=== PATIENT | male | born 1985 | race Caucasian/White ===

== ENCOUNTER 2016-04-07 12:46 | Emergency (ER) | payer OTHER ==
[~2016-04-07] VITALS: Ht 160 cm; Wt 61.8 kg
[~2016-04-07 12:46] MED LIST: BUSP15TA70 PO; SERT-234 PO; TRAZ100T29 PO
[2016-04-07 13:04] VITALS: TEMP 36.8; Ht 160 cm; Wt 61.8 kg
[2016-04-07 13:38] LABS: HEMATOCRIT 42.1 % (42-52); MEAN CELL VOLUME 92.9 fL (80-100); MEAN CORPUSCULAR HEMOGLOBIN 33.6 pg (25-34); MEAN CORPUSCULAR HGB CONC 36.1 g/dl (32-36); MEAN PLATELET VOLUME 8.9 fL (7.4-10.4); PLATELET COUNT 200 K/uL (130-400); RED BLOOD COUNT 4.53 M/uL (4.7-6.1); WHITE BLOOD COUNT 3.64 K/uL (4.8-10.8)
[2016-04-07 13:50] LABS: BENZODIAZEPINE, URINE NEG (NEG); COCAINE,URINE NEG (NEG); PHENCYCLIDINE, URINE NEG (NEG)
[2016-04-07 14:03] LABS: ALT/SGPT 47 U/L (12-78); AST/SGOT 50 U/L (15-37); BLOOD UREA NITROGEN 8 mg/dl (7-18); BUN/CREATININE RATIO 10.9 (10-20); CALCIUM 8.6 mg/dl (8.5-10.1); CARBON DIOXIDE 25 mmol/L (21-32); CHLORIDE 107 mmol/L (98-107); CREATININE 0.74 mg/dl (0.60-1.40); GLUCOSE 81 mg/dl (70-99); POTASSIUM 3.9 mmol/L (3.5-5.1); SODIUM 143 mmol/L (136-145)
[2016-04-07 14:10] LABS: ACETAMINOPHEN < 2 ug/ml (10-30)
[2016-04-07 14:11] LABS: ALKALINE PHOSPHATASE 83 U/L (45-117); THYROID STIMULATING HORMONE 0.516 uIu/ml (0.300-4.500)
--- NOTE | 2016-04-07 16:42 | EMERGENCY ROOM VISIT NOTE ---
History Report prepared by Emmanuel: Samuel Epperson Under the Supervision of: Dr. Milo Rawls M.D. First contact with patient: 12:50 Stated Complaint: MENTAL HEALTH History of Present Illness The patient is a 30 year old male who presents to the Emergency Room for an acute mental health evaluation. As per the mental health field nurse case manager, his sister stated that the patient reportedly made suicidal statements when he was speaking with his mother, which he is currently denying. He denies suicidal ideations. The patient was being checked on by a case manager specialist from retirement, who called an ambulance because he appeared to be out of it. The patient had taken 2 mg of Xanax that is not prescribed to him. The patient was in retirement for five years and was released on January 17. The patient took the Xanax because he has been feeling depressed and anxious. He has prescriptions for BuSpar, Zoloft , and Trazodone. He states that he has been compliant with his prescriptions. He had some mixed drinks last night. He denies drinking any alcohol today. He does not necessarily drink on a daily basis. The patient currently lives with his parents. He has a job, but has been on leave because of a broken arm. They just removed the cast on his right arm and he is ready to go back to work. The patient has been having trouble sleeping. He states that he has "kind of" been eating. The patient denies any other health problems. He follows up with [facility]. The patient states that his goal was to be placed on a medication that will help with his anxiety and depression. The patient is currently in the process of being seen by a psychiatrist but states that he was told that he needs 5 visits with the psychiatrist before being placed on a different medication. Source of History: patient, family Position: other (psyche) Quality: other (mental health evaluation) Timing: other (acute) Modifying Factors (Relieving): other (Xanax) Note: Patient reports anxiety and depression. Review of Systems See HPI for pertinent positives & negatives. A total of 10 systems reviewed and were otherwise negative. Past Medical & Surgical Medical Problems: (1) Abdominal pain (2) Alcohol withdrawal (3) Alcoholism (4) Alcoholism (5) Anxiety (6) Dehydration (7) Dehydration (8) Gastroenteritis (9) Hypokalemia (10) Insomnia (11) Nausea and vomiting (12) Nausea and vomiting (13) Pancreatitis (14) Pancreatitis (15) Vomiting Family History Hypertension Social History Smoking Status: Never Smoker Alcohol Use: heavy Marital Status: Housing Status: lives with family Occupation Status: unemployed Current/Historical Medications Scheduled Buspirone Hcl (Buspar), 20 MG PO HS Sertraline (Zoloft), 100 MG PO DAILY Trazodone Hcl (Trazodone), 100 MG PO HS Allergies Coded Allergies: No Known Allergies (Unverified , 04/07/16) Physical Exam Vital Signs Date Time Temp Pulse Resp B/P Pulse Ox O2 Delivery O2 Flow Rate FiO2 04/07/16 13:04 36.8 95 18 133/94 95 Room Air Physical Exam Constitutional: Vital signs reviewed. Eyes: Pupils are equal round reactive to light. Conjunctiva are noninjected. ENT: Pharynx is clear without erythema or exudate. Mucous membranes are moist. Neck supple without meningeal signs. Respiratory: Clear to auscultation bilaterally. Breath sounds are equal bilaterally. Cardiovascular: Regular rate and rhythm. No rubs or gallops. GI: Soft, nondistended and nontender. Bowel sounds are present. Musculoskeletal: No peripheral edema. Integumentary: No cyanosis. Neurological: The patient is awake and alert. No focal deficits. Psychiatric: He is not tearful or suicidal. Medical Decision & Procedures Laboratory Results 04/07/16 13:15 04/07/16 13:15 Test 04/07/16 13:15 04/07/16 13:20 Red Blood Count 4.53 M/uL (4.7-6.1) Mean Corpuscular Volume 92.9 fL (80-100) Mean Corpuscular Hemoglobin 33.6 pg (25-34) Mean Corpuscular Hemoglobin Concent 36.1 g/dl (32-36) RDW Standard Deviation 45.4 fL (36.4-46.3) RDW Coefficient of Variation 13.5 % (11.5-14.5) Mean Platelet Volume 8.9 fL (7.4-10.4) Anion Gap 11.0 mmol/L (3-11) Est Creatinine Clear Calc Drug Dose 115.3 ml/min Estimated GFR () 141.5 Estimated GFR (Non- 122.1 BUN/Creatinine Ratio 10.9 (10-20) Calcium Level 8.6 mg/dl (8.5-10.1) Total Bilirubin 0.3 mg/dl (0.2-1) Direct Bilirubin < 0.1 mg/dl (0-0.2) Aspartate Amino Transf (AST/SGOT) 50 U/L (15-37) Alanine Aminotransferase (ALT/SGPT) 47 U/L (12-78) Alkaline Phosphatase 83 U/L (45-117) Total Protein 7.9 gm/dl (6.4-8.2) Albumin 4.6 gm/dl (3.4-5.0) Thyroid Stimulating Hormone (TSH) 0.516 uIu/ml (0.300-4.500) Salicylates Level < 1.7 mg/dl (2.8-20) Acetaminophen Level < 2 ug/ml (10-30) Ethyl Alcohol mg/dL 323.0 mg/dl (0-3) Urine Opiates Screen NEG (NEG) Urine Methadone, Qualitative NEG (NEG) Urine Barbiturates NEG (NEG) Urine Phencyclidine (PCP) Level NEG (NEG) Ur Amphetamine/Methamphetamine NEG (NEG) MDMA (Ecstasy) Screen NEG (NEG) Urine Benzodiazepines Screen NEG (NEG) Urine Cocaine Metabolite NEG (NEG) Urine Marijuana (THC) NEG (NEG) Laboratory results as reviewed by me. ED Course 1253: The patient was evaluated in room A7. A complete history and physical exam was performed. 1517: The mental health flanger had a discussion with the patient's mother with his permission. The mother stated that he made no direct statements about suicidality. He has spoken about the suicides of other people but never spoke about suicide in relationship to himself. The reason he was sent over here was because he has been drinking significantly and he was difficult to arouse this morning. The flanger that assessed and was from [place] and not from the retirement. Currently the patient's alcohol level is above 300. He will require mental health assessment once he is sober. Medical Decision This is a 30-year-old male who presents for a mental health evaluation. I did perform a limited focused review of portions of the patient's old chart on the electronic medical record. The patient has been here previously for alcohol withdrawal and alcohol-related injuries. I did evaluate the patient as noted above. I did order and review the patient's blood work as noted in the electronic medical record. His alcohol level is above 300. Initially I was told that the patient was sent here for possible suicidality. The field nurse case manager did speak to the mother directly who stated that the patient did not make any suicidal statements. She stated that the patient talked about the suicides of other people but never spoke about suicide in regards to himself. He was sent here because he was difficult to arouse which was likely due to the combination of Xanax and alcohol ingestion. The patient will be kept in the emergency department until he is sober and be reassessed at that time by mental health. The patient was signed out to Dr. Yan. Impression Primary Impression: Alcohol intoxication Scribe Attestation The scribe's documentation has been prepared under my direct and personally reviewed by me in its entirety. I confirm that the note above accurately reflects all work, treatment, procedures, and medical decision making performed by me. Departure Information Dispostion Still a Patient Referrals No Doctor, Assigned (PCP) Problem Qualifiers Primary Impression: Alcohol intoxication Complication of substance-induced condition: uncomplicated Qualified Codes: F10.120 - Alcohol abuse with intoxication, uncomplicated
[2016-04-07] MEDS ORDERED: TRAZODONE HCL 50 MG TAB PO ONE (22:45)
[2016-04-07] MEDS ORDERED: SERTRALINE HCL 100 MG TAB PO SCH (22:45)
[2016-04-07] MEDS ORDERED: BusPIRone 15 MG TAB PO SCH (22:45)
--- NOTE | 2016-04-08 01:22 | EMERGENCY ROOM VISIT NOTE ---
ED Visit Note Patient is a 30-year-old male who presents the ER intoxicated and was evaluated by Dr. López to be medically cleared at 10 PM. At that time patient was supposed to be evaluated by can help. Stephani from case management discussed with the family and obtained a 302 petition as the patient has been drinking persistently and making suicidal statements per their report. Patient is currently being evaluated by can help and following this evaluation will make a decision. Patient was signed out to Dr. Crawford awaiting can help evaluation.
--- NOTE | 2016-04-08 05:52 | EMERGENCY ROOM VISIT NOTE ---
ED Visit Note First contact with patient: 01:22 30 yr old alcoholic male recently [facility] initially evaluated by Dr Rawls, signed out to Dr Yan awaiting mental health evaluation. 302 petition on file due to multiple suicidal statements while intoxicated. On CAN help evaluation patient willing to sign himself in on 201 basis for further inpatient treatment of his depression, suicidal ideation. [facility] accepted him for further inpatient evaluation and he will be transported there this morning.
[2016-04-08 10:19] VITALS: BP 132/83; PULSE 77; O2SAT 99
== END 2016-04-08 10:21 ==
LOC: EDBD 12:46 → C.EDA 12:48
DX: F10.129 Alcohol abuse with intoxication, unspecified (principal); F32.9 Major depressive disorder, single episode, unspecified; R45.851 Suicidal ideations; F41.9 Anxiety disorder, unspecified; K86.1 Other chronic pancreatitis; Z86.19 Personal history of other infectious and parasitic diseases; Z79.899 Other long term (current) drug therapy; Z82.49 Family history of ischemic heart disease and other diseases of the circulatory system

== ENCOUNTER 2016-07-09 09:33 | Emergency (ER) | payer OTHER ==
[~2016-07-09] VITALS: Ht 160 cm; Wt 63.1 kg
[2016-07-09 09:38] VITALS: TEMP 36.9; Ht 160 cm; Wt 63.1 kg
[2016-07-09] MEDS ORDERED: MULTI-VITAMIN INFUSION INJ 10 ML, THIAMINE HCL INJ 100 MG, FoLIC ACID INJ 1 MG in SODIU... IV ONE (10:00)
--- NOTE | 2016-07-09 10:21 | DIAGNOSTIC IMAGING REPORT ---
HEAD CT NONCONTRAST CT DOSE: 823.94 mGycm HISTORY: Head injury. TECHNIQUE: Multiaxial CT images of the head were performed without the use of intravenous contrast. Automated exposure control was utilized for this study. Comparison: Head CT 10/01/2011. Findings: Severe mucosal thickening within the right maxillary sinus and mild mucosal thickening within the left maxillary sinus. No fluid levels within the paranasal sinuses. The mastoid air cells are clear. Minimal left frontal scalp swelling. Stable prominence of the basilar cisterns. The calvarium and skull base are intact. The ventricles and sulci are within normal limits. There is no mass, hematoma, midline shift, or acute infarct. Impression: 1. No acute intracranial abnormality. 2. Chronic maxillary sinusitis. 3. Minimal left frontal scalp swelling. Electronically signed by: Taiwo Lopez M.D. 07/09/2016 10:19 AM Dictated Date/Time: 07/09/2016 10:13 AM
[2016-07-09 10:49] LABS: CALCIUM 9.1 mg/dl (8.5-10.1); CREATININE 0.73 mg/dl (0.60-1.40); POTASSIUM 3.7 mmol/L (3.5-5.1)
[2016-07-09] MEDS ORDERED: QUET1TAB10 PO (11:07)
[2016-07-09] MEDS ORDERED: BUPR1SUB23 SL (11:07)
[2016-07-09] MEDS ORDERED: ZLF/100 PO (11:07)
[2016-07-09] MEDS ORDERED: BSP/10 PO (11:07)
[2016-07-09] MEDS ORDERED: CTP1CL PO (11:07)
--- NOTE | 2016-07-09 11:31 | DIAGNOSTIC IMAGING REPORT ---
CERVICAL SPINE CT CT DOSE: 504.42 mGycm HISTORY: Trauma. Pain. eval for fx TECHNIQUE: Multiaxial CT images of the cervical spine were performed and reformatted in the sagittal and coronal plane without the use of contrast. COMPARISON: None. FINDINGS: No fractures. No subluxation. Prevertebral soft tissues and the C1-C2 interval are intact. No pneumothorax. IMPRESSION: No fractures within the cervical spine. Electronically signed by: Franco Youssef M.D. 07/09/2016 11:29 AM Dictated Date/Time: 07/09/2016 11:23 AM
[2016-07-09 12:31] VITALS: BP 152/103; PULSE 101; O2SAT 96
--- NOTE | 2016-07-09 14:06 | EMERGENCY ROOM VISIT NOTE ---
History Report prepared by Katherinibtanna: Shelli Massey Under the Supervision of: Dr. Milo Rawls M.D. First contact with patient: 09:39 Chief Complaint: FALL Stated Complaint: FALL/HEAD INJURY History of Present Illness The patient is a 30 year old male who presents to the Emergency Room via EMS with complaints of a head injury status post a fall that occurred this morning. 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 He fell forward and struck his head on the ground. The patient is unsure if he lost consciousness. Afterwards, the patient was altered and was not answering questions appropriately. EMS noted that the patient smelled of alcohol. The patient admitted to EMS that he was drinking vodka and rum last night. Currently, the patient complains of a constant headache. He denies any other injuries or pain from the fall other than some abrasions to his arms. He has a history of a skull fracture as a teenager. Denies neck pain, chest pain, abdominal pain, back pain, or other complaints. Source of History: patient, EMS, nursing staff Onset: this morning Position: head Timing: constant Associated Symptoms: No abdominal pain, No back pain, No chest pain, No neck pain Note: Other symptoms: AMS Review of Systems See HPI for pertinent positives & negatives. A total of 10 systems reviewed and were otherwise negative. Past Medical & Surgical Medical Problems: (1) Abdominal pain (2) Alcohol withdrawal (3) Alcoholism (4) Alcoholism (5) Anxiety (6) Dehydration (7) Dehydration (8) Gastroenteritis (9) Hypokalemia (10) Insomnia (11) Nausea and vomiting (12) Nausea and vomiting (13) Pancreatitis (14) Pancreatitis (15) Vomiting Family History Hypertension Social History Smoking Status: Current Every Day Smoker Alcohol Use: heavy Marital Status: Housing Status: lives with family Occupation Status: employed Current/Historical Medications Scheduled Buprenorphine Hcl-Naloxone Hcl (Suboxone 8-2 Mg), 1 TAB SL DAILY Buspirone HCl (Buspirone HCl), 2 TABS PO HS Clonidine Hcl (Catapres), 1 TAB PO BID Quetiapine Fumarate (Seroquel), 1 TAB PO HS Sertraline HCl (Sertraline HCl), 1 TAB PO DAILY Allergies Coded Allergies: No Known Allergies (Unverified , 07/09/16) Physical Exam Vital Signs Date Time Temp Pulse Resp B/P Pulse Ox O2 Delivery O2 Flow Rate FiO2 07/09/16 12:31 101 16 152/103 96 07/09/16 12:01 101 16 152/103 96 07/09/16 10:16 112 20 153/91 93 Room Air 07/09/16 09:38 36.9 114 18 143/104 94 Room Air Physical Exam Constitutional: Vital signs reviewed. Head: Abrasion to the left forehead. No bony depression. Eyes: Pupils are equal round reactive to light. Conjunctiva are noninjected. ENT: Pharynx is clear without erythema or exudate. Mucous membranes are moist. No midline tenderness to the cervical spine. Neck is in a rigid cervical collar. Respiratory: Clear to auscultation bilaterally. Breath sounds are equal bilaterally. Cardiovascular: Regular rate and rhythm. No rubs or gallops. GI: Soft, nondistended and nontender. Bowel sounds are present. Musculoskeletal: No peripheral edema. No bony tenderness or deformity to the extremities. Abrasions to the right upper extremity. Integumentary: No cyanosis. Neurological: The patient is awake and alert. Cranial nerves II-XII are intact. Motor is 5 out of 5 all extremities. Sensation is intact to light touch all extremities. Normal speech. No pronator drift. No limb ataxia. GCS 15. Psychiatric: Normal affect. Medical Decision & Procedures ER Provider Diagnostic Interpretation: Radiology results as stated below per my review and the radiologist's interpretation: HEAD CT NONCONTRAST CT DOSE: 823.94 mGycm HISTORY: Head injury. TECHNIQUE: Multiaxial CT images of the head were performed without the use of intravenous contrast. Automated exposure control was utilized for this study. Comparison: Head CT 10/01/2011. Findings: Severe mucosal thickening within the right maxillary sinus and mild mucosal thickening within the left maxillary sinus. No fluid levels within the paranasal sinuses. The mastoid air cells are clear. Minimal left frontal scalp swelling. Stable prominence of the basilar cisterns. The calvarium and skull base are intact. The ventricles and sulci are within normal limits. There is no mass, hematoma, midline shift, or acute infarct. Impression: 1. No acute intracranial abnormality. 2. Chronic maxillary sinusitis. 3. Minimal left frontal scalp swelling. Electronically signed by: Taiwo Lopez M.D. 07/09/2016 10:19 AM Dictated Date/Time: 07/09/2016 10:[address] DOSE: 504.42 mGycm HISTORY: Trauma. Pain. eval for fx TECHNIQUE: Multiaxial CT images of the cervical spine were performed and reformatted in the sagittal and coronal plane without the use of contrast. COMPARISON: None. FINDINGS: No fractures. No subluxation. Prevertebral soft tissues and the C1-C2 interval are intact. No pneumothorax. IMPRESSION: No fractures within the cervical spine. Electronically signed by: Franco Youssef M.D. 07/09/2016 11:29 AM Dictated Date/Time: 07/09/2016 11:23 AM Laboratory Results 07/09/16 09:55 Test 07/09/16 09:55 Anion Gap 9.0 mmol/L (3-11) Est Creatinine Clear Calc Drug Dose 116.9 ml/min Estimated GFR () 142.2 Estimated GFR (Non- 122.7 BUN/Creatinine Ratio 23.0 (10-20) Calcium Level 9.1 mg/dl (8.5-10.1) Ethyl Alcohol mg/dL 321.0 mg/dl (0-3) Laboratory results as reviewed by me. Medications Administered Medications (Trade) Dose Ordered Sig/Sohpia Route Start Time Stop Time Status Last Admin Dose Admin Multivitamins/ Thiamine HCl/ Folic Acid/Sodium Chloride (Mvi Infusion Inj/Vitamin B-1 Inj/Folvite Inj/ Nss 1000ml) 1,011.2 ml @ 500 mls/ hr Q2H2M ONCE IV 07/09/16 10:00 07/09/16 12:01 DC 07/09/16 10:16 500 MLS/HR ED Course 0940: The patient was evaluated in room A10. A complete history and physical exam was performed. 1000: Ordered Multivitamins 10 ml/Thiamine HCl 100 mg/Folic Acid 1 mg/NSS 1011.2 ml @ 500 mls/hr IV. 1132: I reassessed the patient. He was awake and alert, drinking a Gatorade. I discussed test results with him, including his alcohol level. He said he was drinking heavily last night at a pool tournament. He declines rehab or detox. 1213: I reassessed the patient. He was awake, alert, and messaging on his cell phone. The patient's boss is at bedside and agreed to drive the patient home. The patient understands that he cannot drive or go back to work for the rest of the day. The patient will be discharged home. Medical Decision This is a 30-year-old male who presents with fall and head injury. Differential diagnosis includes contusion, concussion, skull fracture, intracranial hemorrhage, alcohol intoxication. I did perform a limited focused review of portions of the patient's old chart on the electronic medical record. He was here in March for alcohol intoxication. I did evaluate the patient as noted above. The patient presents after a mechanical fall today. He does have the smell of alcohol on his breath but states that he drank last night. Looking in his previous records he has been here for alcohol intoxication as well as alcohol withdrawal. I suspect he is a long-time drinker although he minimizes his drinking to me. He is neurologically intact. IV access was established. The patient was given an IV banana bag. I did order and review the patient's blood work as noted in the electronic medical record. His alcohol level is over 300. I did order a CT of the head and cervical spine. I did review the images myself as well as the radiology report as described above. There is no evidence of acute process on CT scan. His c-collar was removed and he was able to move his neck without pain or difficulty. We did observe him here. The patient remains awake and alert. He does not appear significantly intoxicated likely because he is a long -term heavy drinker. I did discuss his test results with him. He did wish to go home. He declined alcohol rehabilitation or detox. His boss came to pick him up to take him home. He was told not to and drive for the rest of the day and to follow up with his doctor. He was given head injury precautions. Impression Primary Impression: Acute head injury Additional Impressions: Fall Alcohol intoxication Scribe Attestation The scribe's documentation has been prepared under my direct and personally reviewed by me in its entirety. I confirm that the note above accurately reflects all work, treatment, procedures, and medical decision making performed by me. Departure Information Dispostion Home / Self-Care Referrals No Doctor, Assigned (PCP) Patient Instructions ED Alcohol Intoxication, ED Head Injury Closed, My [facility] Additional Instructions You have been examined and treated today on an emergency basis only. This is not a substitute for, or an effort to provide, complete comprehensive medical care. It is impossible to recognize and treat all injuries or illnesses in a single emergency department visit. It is therefore important that you follow up closely with your physician. Call as soon as possible for an appointment. Return for worsening symptoms or if you develop fever, numbness or weakness on one side of your body, difficulties with your speech or walking, or any other concerning symptoms. Do not drive or operate any machinery today. Problem Qualifiers Primary Impression: Acute head injury Encounter type: initial encounter Qualified Codes: S09.90XA - Unspecified injury of head, initial encounter Additional Impressions: Fall Encounter type: initial encounter Qualified Codes: W19.XXXA - Unspecified fall, initial encounter Alcohol intoxication Complication of substance-induced condition: uncomplicated Qualified Codes: F10.120 - Alcohol abuse with intoxication, uncomplicated
== END 2016-07-09 12:22 | disposition home or self-care (01) ==
LOC: EDBD 09:33 → C.EDA 09:34
DX: S09.90XA Unspecified injury of head, initial encounter (principal); W19.XXXA Unspecified fall, initial encounter; Y99.0 Civilian activity done for income or pay; F10.120 Alcohol abuse with intoxication, uncomplicated; Y90.8 Blood alcohol level of 240 mg/100 ml or more; S00.81XA Abrasion of other part of head, initial encounter; S40.811A Abrasion of right upper arm, initial encounter; F41.9 Anxiety disorder, unspecified; F17.200 Nicotine dependence, unspecified, uncomplicated; Z82.49 Family history of ischemic heart disease and other diseases of the circulatory system

== ENCOUNTER 2016-07-09 15:45 | Emergency (ER) | payer OTHER ==
[~2016-07-09] VITALS: Ht 175.3 cm; Wt 63.6 kg
[~2016-07-09 15:45] MED LIST changes: +BSP/10 PO; +BUPR1SUB23 SL; +CTP1CL PO; +QUET1TAB10 PO; +ZLF/100 PO
--- NOTE | 2016-07-09 15:53 | EMERGENCY ROOM VISIT NOTE ---
History Report prepared by Emmanuel: Bandar Lockett Under the Supervision of: Dr. rGeg Ward M.D. First contact with patient: 15:42 Stated Complaint: LF EAR LAC/ SOME ALCOHOL History of Present Illness The patient is a 30 year old male who presents to the Emergency Room via EMS with complaints of a sudden left ear laceration that occurred prior to arrival today. The patient was seen here earlier today after being drunk at work and hitting his head. He was sent home with his boss. Per EMS, the patient was intoxicated again and went into a wine spirits store. The patient would not be sold any more alcohol, so he then became combative. Police told EMS that the patient was on the floor and smashing wine bottles everywhere. It is presumed that the patient cut his ear on a broken wine bottle. Per EMS, the patient has been combative and actually pulled the band off of his left ear, so EMS had to put another band on. The patient is an occasional drinker, but when he starts he does not quit, per EMS. Per the patient, he currently has a headache. His tetanus shot is up to date. He denies pain anywhere. Denies abdominal pain back pain or vomiting. Source of History: patient, police, EMS Onset: Prior to arrival today Position: ear (left) Quality: other (laceration) Timing: other (sudden) Associated Symptoms: + headache Note: Associated symptoms: Intoxicated, combative. Review of Systems See HPI for pertinent positives & negatives. A total of 10 systems reviewed and were otherwise negative. Past Medical & Surgical Medical Problems: (1) Abdominal pain (2) Alcohol withdrawal (3) Alcoholism (4) Alcoholism (5) Anxiety (6) Dehydration (7) Dehydration (8) Gastroenteritis (9) Hypokalemia (10) Insomnia (11) Nausea and vomiting (12) Nausea and vomiting (13) Pancreatitis (14) Pancreatitis (15) Vomiting Old medical records were reviewed. Nurse's notes were reviewed and I agree with. Family History Hypertension Social History Alcohol Use: occasionally Marital Status: single Occupation Status: employed Current/Historical Medications Scheduled Buprenorphine Hcl-Naloxone Hcl (Suboxone 8-2 Mg), 1 TAB SL DAILY Buspirone HCl (Buspirone HCl), 2 TABS PO HS Clonidine Hcl (Catapres), 1 TAB PO BID Quetiapine Fumarate (Seroquel), 1 TAB PO HS Sertraline HCl (Sertraline HCl), 1 TAB PO DAILY Allergies Coded Allergies: No Known Allergies (Unverified , 07/09/16) Physical Exam Vital Signs Date Time Temp Pulse Resp B/P Pulse Ox O2 Delivery O2 Flow Rate FiO2 07/09/16 19:12 100 18 145/100 100 07/09/16 18:00 110 20 139/93 96 Room Air 07/09/16 16:09 36.9 115 18 151/91 97 Room Air 07/09/16 16:07 98 07/09/16 16:03 95 Room Air Physical Exam General: Well developed well nourished intoxicated young male. Answers some questions but not other. Smells of alcohol. HEENT: Left ear laceration on lateral pinna. Minimal bleeding. It is on the front and also back. Pupils are equal round and reactive to light. Extraocular movements are intact. Oropharynx is pink with moist mucous membranes. Neck: Supple with a midline trachea. No meningeal signs or stiffness, no JVD or bruits. No Stridor. Chest: Clear to auscultation bilaterally. No wheezes or rhonchi. No increased work of breathing. Heart: regular rate and rhythm. Abdomen: Soft nontender, nondistended without rebound guarding or rigidity. Extremities: No cyanosis clubbing or edema. No calf tenderness or assymetry Spine/Back. Non tender to palpation. No CVA tenderness Skin: Good turgor without rashes. Neurologic exam: Cranial nerves two through 12 are intact. Motor and sensation are intact and symmetrical throughout. Medical Decision & Procedures Laboratory Results 07/09/16 16:49 Red Blood Count 4.05, Mean Corpuscular Volume 92.1, Mean Corpuscular Hemoglobin 32.8, Mean Corpuscular Hemoglobin Concent 35.7, Mean Platelet Volume 8.3, Neutrophils (%) (Auto) 63.3, Lymphocytes (%) (Auto) 27.0, Monocytes (%) (Auto) 8.1, Eosinophils (%) (Auto) 0.4, Basophils (%) (Auto) 0.8, Neutrophils # (Auto) 3.35, Lymphocytes # (Auto) 1.43, Monocytes # (Auto) 0.43, Eosinophils # (Auto) 0.02, Basophils # (Auto) 0.04 07/09/16 16:49 Test 07/09/16 16:49 White Blood Count 5.29 K/uL (4.8-10.8) Red Blood Count 4.05 M/uL (4.7-6.1) Hemoglobin 13.3 g/dL (14.0-18.0) Hematocrit 37.3 % (42-52) Mean Corpuscular Volume 92.1 fL (80-100) Mean Corpuscular Hemoglobin 32.8 pg (25-34) Mean Corpuscular Hemoglobin Concent 35.7 g/dl (32-36) Platelet Count 213 K/uL (130-400) Mean Platelet Volume 8.3 fL (7.4-10.4) Neutrophils (%) (Auto) 63.3 % Lymphocytes (%) (Auto) 27.0 % Monocytes (%) (Auto) 8.1 % Eosinophils (%) (Auto) 0.4 % Basophils (%) (Auto) 0.8 % Neutrophils # (Auto) 3.35 K/uL (1.4-6.5) Lymphocytes # (Auto) 1.43 K/uL (1.2-3.4) Monocytes # (Auto) 0.43 K/uL (0.11-0.59) Eosinophils # (Auto) 0.02 K/uL (0-0.5) Basophils # (Auto) 0.04 K/uL (0-0.2) RDW Standard Deviation 48.7 fL (36.4-46.3) RDW Coefficient of Variation 14.3 % (11.5-14.5) Immature Granulocyte % (Auto) 0.4 % Immature Granulocyte # (Auto) 0.02 K/uL (0.00-0.02) Anion Gap 7.0 mmol/L (3-11) Est Creatinine Clear Calc Drug Dose 136.3 ml/min Estimated GFR () 144.7 Estimated GFR (Non- 124.9 BUN/Creatinine Ratio 16.3 (10-20) Calcium Level 8.5 mg/dl (8.5-10.1) Total Bilirubin 0.3 mg/dl (0.2-1) Direct Bilirubin 0.1 mg/dl (0-0.2) Aspartate Amino Transf (AST/SGOT) 151 U/L (15-37) Alanine Aminotransferase (ALT/SGPT) 105 U/L (12-78) Alkaline Phosphatase 67 U/L (45-117) Total Protein 7.9 gm/dl (6.4-8.2) Albumin 4.2 gm/dl (3.4-5.0) Lipase 1838 U/L (73-393) Ethyl Alcohol mg/dL 365.0 mg/dl (0-3) Laboratory studies as stated above per my review. Medications Administered Medications (Trade) Dose Ordered Sig/Sophia Route Start Time Stop Time Status Last Admin Dose Admin Amoxicillin/ Clavulanate Potassium (Augmentin 875MG Home Pack) 1 homepack UD ONCE PO 07/09/16 17:45 07/09/16 17:46 DC 07/09/16 19:06 1 HOMEPACK Procedure Location: Left ear. Total length: 3 cm Complexity: Simple Verbal consent was obtained after the risks and benefits were explained, including but not limited to bleeding, scarring, infection, pain, and bone/joint /nerve damage. At this time, the risks of the procedure are less than the risks of NOT performing the procedure. A time out was taken and the correct patient and site identified. The skin was prepped with betadine. The target area was anesthetized with 1/2 cc of 1% lidocaine without epinephrine. Copious irrigation was performed using normal saline. The skin was re-prepped with betadine and a sterile field set. The wound was explored for foreign bodies and none found. Examination revealed no injury to deep structures such as tendons, bone, or significant blood vessels. Debridement was not performed. The wound edges were approximated using 5-0 simple interrupted nylon sutures. Hemostasis and excellent approximation was achieved. Antibacterial ointment and a sterile dressing applied. Detailed wound care instructions and signs and symptoms of infection reviewed with the patient. No complications and the patient tolerated the procedure well. ED Course 1542: Past medical records reviewed. The patient was evaluated in room C8, and a complete history and physical examination were performed. 1614: I reevaluated the patient and he is sleeping but flinches when touched. 1615: Ordered Buffered Lidocaine 1% Inj 20 ml INFIL. 170: I reevaluated the patient and sowed up his ear laceration. He is awake and cooperative now. 1745: Ordered Augmentin 875MG Home Pack 1 homepack PO. 0: I reevaluated the patient and he is resting comfortably. I talked to him about his lipase being elevated, and that it is likely pancreatitis from drinking. He does not have any abdominal tenderness or vomiting to clinically suggest pancreatitis. The patient does not want to be evaluated for further treatment. His mother will come pick him up. The patient verbally expressed understanding and agreement of the treatment plan. The patient will be discharged. 185: I talked to the patient's mother, who is here to order picker the patient. I talked to the patient as well, and he says that he does not want rehab, and that he can do it himself. He has a normal neurologic exam. Medical Decision Differentials include, but are not limited to; alcohol intoxication, laceration , electrolyte or metabolic abnormality. This patient comes in as described above. He was found intoxicated and cut his ear on a broken glass when they refused to give him any more alcohol. He was actually seen here earlier today had a CAT scan of his head and neck after he had fallen and he also had a blood alcohol of over 300 at the time. He did receive a banana bag been and therefore should be repleted on his vitamins. He was mildly combative and significant intoxicated. Blood work was obtained he was observed on a monitored bed while he sobered up. He became much more cooperative I did so his ear up as outlined above. He tolerated this well. Bacitracin and pressure dressing were applied to prevent hematoma. He also started Augmentin for prophylaxis of infection given that involve the ear and concern for infection of the cartilage. The cartilage was not significantly violated. The cartilage itself did not have to be repaired. The patient sobered up and was cooperative. He has no abdominal or chest pain no back pain or nausea or vomiting. Lipase was fairly significant elevated at 1800. I talked to patient about this he has no symptoms to suggest pancreatitis. I suggested that we could keep him the hospital for observation he adamantly declines. I encouraged him to stop drinking. Despite having a blood alcohol of 350 here, he seems minimally intoxicated now and I suspect is a heavy drinker. I offered to help get him in with rehabilitation and he says he will do it on his own and does not want help. His mother did arrive and she agrees with the plan and he will be discharged with his mother. He should follow-up with his doctor this week for recheck. He should return in 5 days for suture removal and return sooner if any problems problems with the wound, any new problems or concerns abdominal pain back pain or vomiting. Impression Primary Impression: Alcohol intoxication Additional Impression: Laceration of ear Scribe Attestation The scribe's documentation has been prepared under my direction and personally reviewed by me in its entirety. I confirm that the note above accurately reflects all work, treatment, procedures, and medical decision making performed by me. Departure Information Dispostion Home / Self-Care Forms HOME CARE DOCUMENTATION FORM, IMPORTANT VISIT INFORMATION, WORK / SCHOOL INSTRUCTIONS Patient Instructions My [facility] Additional Instructions Rest. Drink plenty of fluids. Do not drink anymore alcohol. Please consider alcohol rehabilitation Return if: Any problems with the wound such as redness, pus, fever, drainage Have your doctor or return here in 5-7 days for suture removal Also return if: Fever, back pain, vomiting, worsening symptoms, any new problems concerns Follow-up with your doctor in 1-2 days for recheck Problem Qualifiers
[2016-07-09 16:03] VITALS: O2SAT 95
[2016-07-09 16:09] VITALS: TEMP 36.9; Ht 175.3 cm; Wt 63.6 kg
[2016-07-09] MEDS ORDERED: XYLOCAINE 1%/SOD BICARB 20 ML VIAL INFIL ONE (16:15)
[2016-07-09 17:04] LABS: BASO % 0.8 %; BASO ABS # 0.04 K/uL (0-0.2); COMPLETE YES; EOS % 0.4 %; HEMATOCRIT 37.3 % (42-52); IG% 0.4 %; LYMPH ABS # 1.43 K/uL (1.2-3.4); MEAN CELL VOLUME 92.1 fL (80-100); MEAN CORPUSCULAR HEMOGLOBIN 32.8 pg (25-34); MEAN CORPUSCULAR HGB CONC 35.7 g/dl (32-36); MEAN PLATELET VOLUME 8.3 fL (7.4-10.4); MONO % 8.1 %; NEUT % 63.3 %; PLATELET COUNT 213 K/uL (130-400); RED BLOOD COUNT 4.05 M/uL (4.7-6.1); WHITE BLOOD COUNT 5.29 K/uL (4.8-10.8)
[2016-07-09 17:25] LABS: BUN/CREATININE RATIO 16.3 (10-20); CALCIUM 8.5 mg/dl (8.5-10.1); CREATININE 0.7 mg/dl (0.60-1.40); POTASSIUM 3.5 mmol/L (3.5-5.1)
[2016-07-09] MEDS ORDERED: AMOXICIL/CLAVU 875MG HOME PACK PO ONE (17:45)
[2016-07-09 19:12] VITALS: BP 145/100; PULSE 100; O2SAT 100
== END 2016-07-09 19:13 | disposition home or self-care (01) ==
LOC: EDBD 15:45 → C.EDC 15:50
DX: F10.129 Alcohol abuse with intoxication, unspecified (principal); S01.312A Laceration without foreign body of left ear, initial encounter; W25.XXXA Contact with sharp glass, initial encounter; Y92.512 Supermarket, store or market as the place of occurrence of the external cause; F41.9 Anxiety disorder, unspecified; E87.6 Hypokalemia; G47.00 Insomnia, unspecified; Z82.49 Family history of ischemic heart disease and other diseases of the circulatory system; Z79.899 Other long term (current) drug therapy

== ENCOUNTER → 2017-03-09 | Outpatient (CLI) | payer OTHER ==
[~2017-03-09] MED LIST changes: -BUSP15TA70 PO; -SERT-234 PO; -TRAZ100T29 PO
[2017-03-09 17:36] LABS: HEMATOCRIT 40.2 % (42-52); MEAN CORPUSCULAR HEMOGLOBIN 34.1 pg (25-34); MEAN CORPUSCULAR HGB CONC 34.8 g/dl (32-36); MEAN PLATELET VOLUME 9.3 fL (7.4-10.4); PLATELET COUNT 448 K/uL (130-400)
== END | disposition home or self-care (01) ==
LOC: C.LABPBG 12:53
PROVIDERS: ATTEND Family Medicine
DX: F10.20 Alcohol dependence, uncomplicated (principal); F11.20 Opioid dependence, uncomplicated

== ENCOUNTER 2018-10-17 17:19 | Inpatient (IN) ==
[2018-10-17] MEDS ORDERED: SODIUM CHLORIDE 0.9% 1000ML 1,000 ML IV ONE ×2 (17:26→21:36)
[2018-10-17] MEDS ORDERED: THIAMINE HCL 100 MG in SYRINGE 9 ML IV STA (17:26)
[2018-10-17] MEDS ORDERED: SODIUM CHLORIDE 0.9% 1000ML 1,000 ML IV SCH (17:30)
--- NOTE | 2018-10-17 17:43 | Emergency Department Note ---
Entered by Priya Redd acting as a scribe for Mark Kraus DO History of Present Illness General Chief complaint: Unresponsive Stated complaint: UNRESPONESIVE Source: EMS Mode of arrival: EMS History of Present Illness Onset (ago): hour(s) 1 Location: head (unresponsive) Relieved By: + none Exacerbated By: + none The patient is a 32 year old male who presents to the ED via EMS due to unresponsiveness. The EMS reported that the patient was found unresponsive in his home with his prescription pills of Trazodone. The EMS report that the patient smelled like alcohol when they picked him up. 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 ROS and HPI were limited due to the patient being unresponsive upon arrival. Home Medications Home Medications Medication Instructions Recorded Confirmed Type BUPRENORPHINE HCL-NALOXONE HCL 1 tab SUBLINGUAL DAILY #0 07/09/16 History (SUBOXONE 8-2 MG) Buspirone HCl 2 tabs PO HS #60 07/09/16 History CLONIDINE HCL (Catapres) 1 tab PO BID #60 07/09/16 History QUETIAPINE FUMARATE (SEROQUEL) 1 tab PO HS #30 07/09/16 History Sertraline HCl 1 tab PO DAILY #30 07/09/16 History Allergies Allergy/AdvReac Type Severity Reaction Status Date / Time No Known Allergies Allergy Unverified 07/09/16 16:44 Past Med/Surg History Medical History No known health problems Family History Other No significant family history Social History Preferred Language: Kyrgyz Communication Ability: Effective Communication Ability Comment: appears to be intoxicated and/or under the influence of street drugs Ammunition And Explosives Handler Required: No Beliefs That Will Affect Care: None Current Living Situation: Alone Other Information That Helps Us Care for You: No Feels Safe at Home: Yes Safety Concerns: Feels Safe At This Time Smoking Status: Former smoker Tobacco Type: smokeless tobacco Cigarettes Per Day: 20 Do You Dip or Chew Tobacco: Yes Second Hand Exposure: No Tobacco Cessation Education Requested by Patient: No Hx Alcohol Use: Yes Alcohol type: hard liquor Hx Substance Use: No Review of Systems Other ROS and HPI were limited due to the patient being unresponsive upon arrival. Physical Exam Vital Signs Vital Signs - 24 hr 10/17/18 17:25 10/17/18 17:50 10/17/18 18:03 Temperature 36.9 C Temperature Source Oral Sepsis Recent Fever Within 48 Hours No Sepsis New/Unexplained Change in Mental Status No Sepsis Action Taken by Nursing No Action Required Oxygen Flow Rate - Titration 2 Pulse Oximetry Post Tiitration 99 Pulse Rate 74 Pulse Rate [Right Finger] 58 L Pulse Rate from SpO2 Sensor Pulse Rhythm Regular Pulse Rhythm [Right Finger] Regular Pulse Strength Normal Pulse Strength [Right Finger] Normal Respiratory Rate 18 14 Respiratory Effort / Characteristics Non-Labored Non-Labored Spontaneous Respiratory Depth Normal Normal Respiratory Pattern Regular Regular Blood Pressure 118/79 Blood Pressure [Left Arm] 122/77 Blood Pressure Mean 92 Blood Pressure Mean [Left Arm] 92 Blood Pressure Position Lying Blood Pressure Position [Left Arm] Lying Pulse Oximetry 98 88 L 100 Oxygen Delivery Method Room Air Room Air Nasal Cannula Oxygen Flow Rate 2 10/17/18 18:30 10/17/18 19:26 10/17/18 19:30 Temperature Temperature Source Sepsis Recent Fever Within 48 Hours Sepsis New/Unexplained Change in Mental Status Sepsis Action Taken by Nursing Oxygen Flow Rate - Titration Pulse Oximetry Post Tiitration Pulse Rate 80 81 Pulse Rate [Right Finger] 81 Pulse Rate from SpO2 Sensor 82 81 Pulse Rhythm Pulse Rhythm [Right Finger] Regular Pulse Strength Pulse Strength [Right Finger] Normal Respiratory Rate 24 18 20 Respiratory Effort / Characteristics Non-Labored Respiratory Depth Normal Respiratory Pattern Regular Blood Pressure 124/78 132/77 Blood Pressure [Left Arm] 127/74 Blood Pressure Mean 93 95 Blood Pressure Mean [Left Arm] 91 Blood Pressure Position Blood Pressure Position [Left Arm] Lying Pulse Oximetry 100 100 100 Oxygen Delivery Method Nasal Cannula Nasal Cannula Nasal Cannula Oxygen Flow Rate 2 2 2 10/17/18 20:00 10/17/18 20:02 10/17/18 20:30 Temperature Temperature Source Sepsis Recent Fever Within 48 Hours Sepsis New/Unexplained Change in Mental Status Sepsis Action Taken by Nursing Oxygen Flow Rate - Titration Pulse Oximetry Post Tiitration Pulse Rate 80 80 78 Pulse Rate [Right Finger] Pulse Rate from SpO2 Sensor 80 81 Pulse Rhythm Regular Pulse Rhythm [Right Finger] Pulse Strength Pulse Strength [Right Finger] Respiratory Rate 14 14 20 Respiratory Effort / Characteristics Respiratory Depth Respiratory Pattern Blood Pressure 129/74 125/76 Blood Pressure [Left Arm] Blood Pressure Mean 92 92 Blood Pressure Mean [Left Arm] Blood Pressure Position Blood Pressure Position [Left Arm] Pulse Oximetry 99 99 99 Oxygen Delivery Method Nasal Cannula Nasal Cannula Nasal Cannula Oxygen Flow Rate 2 2 2 10/17/18 21:33 10/17/18 21:42 10/17/18 22:00 Temperature Temperature Source Sepsis Recent Fever Within 48 Hours Sepsis New/Unexplained Change in Mental Status Sepsis Action Taken by Nursing Oxygen Flow Rate - Titration Pulse Oximetry Post Tiitration Pulse Rate 71 63 Pulse Rate [Right Finger] Pulse Rate from SpO2 Sensor 61 Pulse Rhythm Pulse Rhythm [Right Finger] Pulse Strength Pulse Strength [Right Finger] Respiratory Rate 16 17 Respiratory Effort / Characteristics Respiratory Depth Respiratory Pattern Blood Pressure 131/76 124/74 Blood Pressure [Left Arm] Blood Pressure Mean 94 90 Blood Pressure Mean [Left Arm] Blood Pressure Position Blood Pressure Position [Left Arm] Pulse Oximetry 97 100 Oxygen Delivery Method Room Air Room Air Nasal Cannula Oxygen Flow Rate 2 2 GENERAL: Patient is obtunded and does not follow commands. EYES: Conjunctivae are injected bilaterally. Pupils are dilated and minimally reactive to light bilaterally. There is no nystagmus noted. EARS, NOSE, MOUTH AND THROAT: The nose is without any evidence of any deformity. Mucous membranes are moist tongue is midline NECK: The neck is nontender and supple. RESPIRATORY: Normal respiratory effort is noted there is no evidence of wheezing rhonchi or rales CARDIOVASCULAR: Regular rate and rhythm noted there no murmurs rubs or gallops normal S1 normal S2 GASTROINTESTINAL: The abdomen is soft. Bowel sounds are present in all quadrants. Abdomen is nontender MUSCULOSKELETAL/EXTREMITIES: There is no evidence of gross deformity full range of motion is noted in the hips and shoulders SKIN: There is no obvious evidence of any rash. No significant pedal edema was noted. NEUROLOGIC: Patient is looking around the room but does not follow commands. Unable to assess orientation at this time. Patellar tendon reflexes are 2+ bilaterally. Course 172: Past medical records reviewed. The patient was evaluated in room B1. A complete history and physical exam was performed. 0: I reevaluated the patient at this time and he is resting comfortably. 2029: I reevaluated the patient at this time and he is resting comfortably. I discussed the test results and treatment plan with the patient's mother. She verbally agrees and understands. 2032: I discussed the patients case with Dr. Boyer, [facility] Hospitalist. He agreed to admit the patient for further management. 2039: I reevaluated the patient at this time and he is resting comfortably. I informed the patients mother of the patients further admittance. Consultations Consultation #1: I [facility] the [facility] to [facility] the patient for further management. Time: 20:33 Administered Medications Lorazepam (Ativan) 1 mg in 2 mls @ 2 mls/min IV UD PRN; Protocol PRN Reason: EtOH Withdrawl AWSS Score 6,7 Stop: 11/16/18 23:52 Last Admin: 10/18/18 06:06 Dose: 2 mls/min Documented by: [id number] Admin: 10/18/18 03:27 Dose: 2 mls/min Documented by: [id number] Admin: 10/18/18 00:45 Dose: 2 mls/min Documented by: [id number] Potassium Chloride/Sodium Chloride (1/2 Nss + 20meq Kcl 1000ml) 20 meq in 1,000 mls @ 200 mls/hr IV .Q5H YOCASTA Stop: 11/17/18 04:29 Last Admin: 10/18/18 14:38 Dose: 200 mls/hr Documented by: [id number] Infusion: 10/18/18 14:38 Dose: 200 mls/hr Documented by: [id number] Admin: 10/18/18 09:41 Dose: 200 mls/hr Documented by: [id number] Infusion: 10/18/18 09:41 Dose: 200 mls/hr Documented by: [id number] Admin: 10/18/18 05:16 Dose: 200 mls/hr Documented by: [id number] Ondansetron HCl (Zofran) 4 mg IV Q6H PRN PRN Reason: Nausea Stop: 11/16/18 23:52 Last Admin: 10/18/18 12:28 Dose: 4 mg Documented by: [id number] Thiamine HCl (Vitamin B-1) 100 mg PO QAM YOCASTA Stop: 11/16/18 23:52 Last Admin: 10/18/18 08:41 Dose: 100 mg Documented by: [id number] Admin: 10/18/18 00:45 Dose: 100 mg Documented by: [id number] Discontinued Medications Sodium Chloride (Nss 1000ml) 1,000 mls @ 999 mls/hr IV .Q1H1M ONE Stop: 10/17/18 18:26 Last Infusion: 10/17/18 18:30 Dose: 0 mls/hr Documented by: [id number] Admin: 10/17/18 17:38 Dose: 999 mls/hr Documented by: [id number] Sodium Chloride (Nss 1000ml) 1,000 mls @ 999 mls/hr IV .Q1H1M YOCASTA Stop: 10/17/18 18:30 Last Infusion: 10/17/18 19:20 Dose: 0 mls/hr Documented by: [id number] Admin: 10/17/18 18:01 Dose: 999 mls/hr Documented by: [id number] Thiamine HCl 100 mg/ Syringe 10 mls @ 2 mls/min IV NOW STA Stop: 10/17/18 17:30 Last Admin: 10/17/18 18:01 Dose: 2 mls/min Documented by: [id number] Sodium Chloride (Nss 1000ml) 1,000 mls @ 999 mls/hr IV .Q1H1M ONE Stop: 10/17/18 22:36 Last Infusion: 10/17/18 22:55 Dose: 0 mls/hr Documented by: [id number] Admin: 10/17/18 21:47 Dose: 999 mls/hr Documented by: [id number] Lorazepam (Ativan) 0.5 mg PO NOW STA Stop: 10/18/18 09:16 Last Admin: 10/18/18 09:41 Dose: 0.5 mg Documented by: [id number] Medical Decision Making Differential Diagnosis Differential diagnosis: Etiologies such as alcohol intoxication, toxicological, infection, hypoglycemia, electrolyte abnormalities, cardiac sources, intracerebral event, neurologic, as well as others were entertained. Medical Records Attestation: I reviewed the patient's medical records. Home Medications Current Medication List: was personally reviewed by me Laboratory Data Attestation: I reviewed the patient's lab results. Result diagrams: 10/17/18 17:05 10/18/18 10:38 Lab Results 10/17/18 10/17/18 10/17/18 Range/Units 17:05 17:05 17:05 WBC 6.33 (4.8-10.8) K/uL RBC 4.99 (4.7-6.1) M/uL Hgb 16.3 (14.0-18.0) g/dL Hct 45.3 (42-52) % MCV 90.8 (80-100) fL MCH 32.7 (25-34) pg MCHC 36.0 (32-36) g/dL RDW Std Deviation 42.8 (36.4-46.3) fL RDW Coeff of Baldo 13.0 (11.5-14.5) % Plt Count 224 (130-400) K/uL MPV 8.9 (7.4-10.4) fL Immature Gran % (Auto) 0.2 % Neut % (Auto) 58.7 % Lymph % (Auto) 35.7 % [place] % (Auto) 4.7 % Eos % (Auto) 0.2 % Baso % (Auto) 0.5 % Immature Gran # (Auto) 0.01 (0.00-0.02) K/uL Neut # (Auto) 3.72 (1.4-6.5) K/uL Lymph # (Auto) 2.26 (1.2-3.4) K/uL [place] # (Auto) 0.30 (0.11-0.59) K/uL Eos # (Auto) 0.01 (0-0.5) K/uL Baso # (Auto) 0.03 (0-0.2) K/uL PT 10.9 (9.0-12.0) Seconds INR 1.1 (0.9-1.1) APTT 26.5 (21.0-31.0) Seconds PTT Ratio 1.0 Sodium 144 (136-145) mmol/L Potassium 3.9 (3.5-5.1) mmol/L Chloride 106 (98-107) mmol/L Carbon Dioxide 26 (21-32) mmol/L Anion Gap 13.0 H (3-11) BUN 16 (7-18) mg/dl Creatinine 0.82 (0.6-1.4) mg/dl Est Cr Clr Drug Dosing 140.8 ml/min Est GFR ( Amer) 133.7 Est GFR (Non-Af Amer) 115.4 BUN/Creatinine Ratio 19.5 (10-20) Glucose 90 (70-99) mg/dl Osmolality (280-300) mOsm/kg Calcium 8.0 L (8.5-10.1) mg/dl Magnesium 2.3 (1.8-2.4) mg/dl Total Bilirubin 0.7 (0.2-1) mg/dl AST 153 H (15-37) U/L ALT 93 H (12-78) U/L Alkaline Phosphatase 115 (45-117) U/L Total Creatine Kinase 2730 H (39-308) U/L Troponin I < 0.015 (0-0.045) ng/ml Total Protein 7.8 (6.4-8.2) gm/dl Albumin 4.2 (3.4-5.0) gm/dl Globulin 3.6 (2.5-4.0) gm/dl Albumin/Globulin Ratio 1.2 (0.9-2) Lipase 123 (73-393) U/L Salicylates (2.8-20) mg/dl Acetaminophen (10-30) ug/ml Ethyl Alcohol mg/dL (0-3) mg/dl 10/17/18 10/17/18 10/17/18 Range/Units 17:05 17:57 17:57 WBC (4.8-10.8) K/uL RBC (4.7-6.1) M/uL Hgb (14.0-18.0) g/dL Hct (42-52) % MCV (80-100) fL MCH (25-34) pg MCHC (32-36) g/dL RDW Std Deviation (36.4-46.3) fL RDW Coeff of Baldo (11.5-14.5) % Plt Count (130-400) K/uL MPV (7.4-10.4) fL Immature Gran % (Auto) % Neut % (Auto) % Lymph % (Auto) % [place] % (Auto) % Eos % (Auto) % Baso % (Auto) % Immature Gran # (Auto) (0.00-0.02) K/uL Neut # (Auto) (1.4-6.5) K/uL Lymph # (Auto) (1.2-3.4) K/uL [place] # (Auto) (0.11-0.59) K/uL Eos # (Auto) (0-0.5) K/uL Baso # (Auto) (0-0.2) K/uL PT (9.0-12.0) Seconds INR (0.9-1.1) APTT (21.0-31.0) Seconds PTT Ratio Sodium (136-145) mmol/L Potassium (3.5-5.1) mmol/L Chloride (98-107) mmol/L Carbon Dioxide (21-32) mmol/L Anion Gap (3-11) BUN (7-18) mg/dl Creatinine (0.6-1.4) mg/dl Est Cr Clr Drug Dosing ml/min Est GFR ( Amer) Est GFR (Non-Af Amer) BUN/Creatinine Ratio (10-20) Glucose (70-99) mg/dl Osmolality 447 H* (280-300) mOsm/kg Calcium (8.5-10.1) mg/dl Magnesium (1.8-2.4) mg/dl Total Bilirubin (0.2-1) mg/dl AST (15-37) U/L ALT (12-78) U/L Alkaline Phosphatase (45-117) U/L Total Creatine Kinase (39-308) U/L Troponin I (0-0.045) ng/ml Total Protein (6.4-8.2) gm/dl Albumin (3.4-5.0) gm/dl Globulin (2.5-4.0) gm/dl Albumin/Globulin Ratio (0.9-2) Lipase (73-393) U/L Salicylates < 1.7 L (2.8-20) mg/dl Acetaminophen < 2 L (10-30) ug/ml Ethyl Alcohol mg/dL 516.6 H (0-3) mg/dl Imaging Data Radiologist's Impression: Radiology results as stated below per my review and the radiologist's interpretation: XR chest 1V portable CLINICAL HISTORY: OD dyspnea COMPARISON STUDY: 03/08/2014 FINDINGS: The bones soft tissues and hemidiaphragms are normal. The cardiomediastinal silhouette is normal. The lungs are clear. The pulmonary vasculature is normal. IMPRESSION: Negative chest. The above report was generated using voice recognition software. It may contain grammatical, syntax or spelling errors. Electronically signed by: Franco Youssef M.D. 10/17/2018 6:[address] CT DOSE: 1228.53 mGy.cm HISTORY: Altered mental status. TECHNIQUE: Multiaxial CT images of the head were performed without the use of intravenous contrast. Automated exposure control was utilized for this study. A dose lowering technique was utilized adhering to the principles of ALARA. Comparison: None. Findings: The paranasal sinuses and mastoid air cells are clear. The calvarium and skull base are intact. The ventricles and sulci are within normal limits. There is no mass, hematoma, midline shift, or acute infarct. Impression: No acute intracranial abnormality. Electronically signed by: Taiwo Lopez M.D. 10/17/2018 6:20 PM ECG Data Attestation: I personally reviewed and interpreted this ECG as follows: Indication: toxicologic Rate (beats per minute): 73 Rhythm: normal sinus Findings: no PAC, no PVC, no ST depression, no ST elevation, no acute ischemic change and no ectopy Comparison ECG Date: from (01/22/2016) Change: no significant change Blood Pressure Blood Pressure Findings: Normal blood pressure Blood Pressure Disposition: did not require urgent referral MDM Narrative Additional history was obtained from the prehospital personnel. Additional history was obtained from the patient's mother. The patient is a 32-year-old male who presented to the emergency department with altered mental status. The patient's history and physical exam appear to be consistent with intoxication. He was found to have a very high alcohol level. He was treated with IV fluids and IV thiamine. He was able to maintain his airway to a good degree. He was also found to have signs of rhabdomyolysis and was further treated with IV fluids in the emergency department. I discussed the patient's laboratory and radiographic studies with his mother. I also discussed his case with the on-call [facility] hospitalist group. They have agreed to evaluate the patient in the emergency department for further management and disposition. Impression & Plan Overdose, Alcohol overdose Discharge Plan Visit Data *Final* Discharge Date/Time: 10/17/18 23:10 Chief Complaint: Unresponsive Stated Complaint: UNRESPONESIVE ED Provider: Mark Kraus Discharge Problem: Overdose, Alcohol overdose Patient Disposition: Admitted As Inpatient Discharge Instructions Interventions: ED Discharge Assessment Last Done: 10/17/18 23:10 Discharge Problem: Overdose Qualifiers: Encounter type: initial encounter Injury intent: accidental or unintentional Qualified Code(s): T50.901A - Poisoning by unspecified drugs, medicaments and biological substances, accidental (unintentional), initial encounter The scribe's documentation has been prepared under my direction and personally reviewed by me in its entirety. I confirm that the note above accurately reflects all work, treatment, procedures, and medical decision making performed by me.
[2018-10-17 17:54] LABS: Basophils # (auto) 0.03 K/uL (0-0.2); Basophils % (auto) 0.5 %; Eosinophils # (auto) 0.01 K/uL (0-0.5); Eosinophils % (auto) 0.2 %; Hematocrit (blood only) 45.3 % (42-52); Hemoglobin 16.3 g/dL (14.0-18.0); Immature Granulocytes # (auto) 0.01 K/uL (0.00-0.02); Immature Granulocytes % (auto) 0.2 %; Lymphocytes # (auto) 2.26 K/uL (1.2-3.4); Lymphocytes % (auto) 35.7 %; Mean Corpuscular Volume 90.8 fL (80-100); Mean Platelet Volume 8.9 fL (7.4-10.4); Monocytes % (auto) 4.7 %; Neutrophils # (auto) 3.72 K/uL (1.4-6.5); Neutrophils % (auto) 58.7 %; Platelet Count 224 K/uL (130-400); RDW Standard Deviation 42.8 fL (36.4-46.3); Red Blood Count 4.99 M/uL (4.7-6.1); White Blood Count 6.33 K/uL (4.8-10.8)
[2018-10-17 18:04] LABS: Appearance Urine Clear (Clear); Bacteria Urine Automated Negative (Negative); Bilirubin Urine Negative (Negative); Color Urine Yellow; Glucose Urine UA Negative (Negative); Ketones Urine Trace (Negative); Leukocyte Esterase Urine Negative (Negative); Nitrite Urine Negative (Negative); Protein Urine Trace (Negative); Specific Gravity Urine 1.022 (1.000-1.030); Urobilinogen Urine Negative (Negative)
[2018-10-17 18:04] LABS: INR 1.1 (0.9-1.1); Partial Thromboplastin Time 26.5 Seconds (21.0-31.0); Prothrombin Time 10.9 Seconds (9.0-12.0)
[2018-10-17 18:05] LABS: Alanine Aminotransferase 93 U/L (12-78); Albumin Level 4.2 gm/dl (3.4-5.0); Aspartate Aminotransferase 153 U/L (15-37); BUN Creatinine Ratio 19.5 (10-20); Blood Urea Nitrogen 16 mg/dl (7-18); Carbon Dioxide 26 mmol/L (21-32); Chloride 106 mmol/L (98-107); Creatinine Clr Calc Pharmacy 140.8 ml/min; Est GFR (African American) 133.7; Est GFR (Non-African American) 115.4; Glucose 90 mg/dl (70-99); Magnesium 2.3 mg/dl (1.8-2.4); Potassium 3.9 mmol/L (3.5-5.1); Sodium 144 mmol/L (136-145)
--- NOTE | 2018-10-17 18:08 | XRay Report ---
XR chest 1V portable CLINICAL HISTORY: OD dyspnea COMPARISON STUDY: 03/08/2014 FINDINGS: The bones soft tissues and hemidiaphragms are normal. The cardiomediastinal silhouette is n ormal. The lungs are clear. The pulmonary vasculature is normal. IMPRESSION: Negative chest. The above report was generated using voice recognition software. It may contain grammatical, syntax or spelling errors. Electronically signed by: Franco Youssef M.D. 10/17/2018 6:07 PM
[2018-10-17 18:20] LABS: Albumin Globulin Ratio 1.2 (0.9-2); Alkaline Phosphatase 115 U/L (45-117); Bilirubin,Total 0.7 mg/dl (0.2-1); Creatine Kinase 2730 U/L (39-308); Globulin 3.6 gm/dl (2.5-4.0); Total Protein 7.8 gm/dl (6.4-8.2); Troponin I < 0.015 ng/ml (0-0.045)
--- NOTE | 2018-10-17 18:21 | CT Scan Report ---
HEAD CT NONCONTRAST CT DOSE: 1228.53 mGy.cm HISTORY: Altered mental status. TECHNIQUE: Multiaxial CT images of the head were performed without the use of intravenous contrast. A utomated exposure control was utilized for this study. A dose lowering technique was utilized adheri ng to the principles of ALARA. Comparison: None. Findings: The paranasal sinuses and mastoid air cells are clear. The calvarium and skull base are int act. The ventricles and sulci are within normal limits. There is no mass, hematoma, midline shift, or acute infarct. Impression: No acute intracranial abnormality. Electronically signed by: Taiwo Lopez M.D. 10/17/2018 6:20 PM
[2018-10-17 18:31] LABS: Acetaminophen < 2 ug/ml (10-30); Salicylate < 1.7 mg/dl (2.8-20)
[2018-10-17 18:36] LABS: Amphetamines+Metham, Urine Neg (Neg); Barbiturates, Urine Neg (Neg); Benzodiazepine, Urine Neg (Neg); Cocaine, Urine Neg (Neg); MDMA (Ecstacy), Urine Pos (Neg); Methadone, Urine Neg (Neg); Opiate, Urine Neg (Neg); Phencyclidine, Urine Neg (Neg)
--- NOTE | 2018-10-17 22:32 | History & Physical Report ---
Date of Service October 17, 2018 Assessment & Plan (1) Altered mental status: Altered mental status/alcohol overdose/hyperosmolality/Suboxone use/unknown quantity of Rx meds taken- His medication list will need to be verified, and number of pills taken verified as well. The patient will be admitted to a monitored bed to monitor for arrhythmia. He will be rehydrated with normal saline at 30 mils per kilogram. Will then place on half-normal saline with potassium chloride 20 mEq at 200 mils per hour. Present on Admission?: Yes (2) Hyperosmolality: Follow serial serum osmolality, BMP and magnesium levels at every 6 hours intervals. Present on Admission?: Yes (3) Dehydration: See above Present on Admission?: Yes (4) Alcohol overdose: Alcohol overdose/alcoholism- Place on alcohol withdrawal scale with IV Ativan. Present on Admission?: Yes (5) Alcoholism: See above. Present on Admission?: Yes History of Present Illness Chief Complaint: The patient was found unresponsive at his home, with property and supply officer at the scene, and reportedly smelled of alcohol and had a prescription bottle of trazodone. Primary Care Provider: Everardo Rogers The patient is a 32-year-old male who was brought to the emergency department unresponsive by EMS, with concerns regarding alcohol and trazodone misuse. ED reports that the number of pills that were available in the prescription bottle of trazodone suggested that the patient did not take excessive amounts. Work-up in the emergency department included laboratories, which showed alcohol level of 516.6, and a serum osmolality of 447. Urine drug screen was positive for ecstasy, with confirmation pending, and liver tests were abnormal. He was then referred for evaluation for admission. Allergies Allergy/AdvReac Type Severity Reaction Status Date / Time No Known Allergies Allergy Unverified 07/09/16 16:44 Home Medications Home Medications Medication Instructions Recorded Confirmed Type BUPRENORPHINE HCL-NALOXONE HCL 1 tab SUBLINGUAL DAILY #0 07/09/16 History (SUBOXONE 8-2 MG) Buspirone HCl 2 tabs PO HS #60 07/09/16 History CLONIDINE HCL (Catapres) 1 tab PO BID #60 07/09/16 History QUETIAPINE FUMARATE (SEROQUEL) 1 tab PO HS #30 07/09/16 History Sertraline HCl 1 tab PO DAILY #30 07/09/16 History Past Med/Surg History Medical History No known health problems Family History Other No significant family history Social History Preferred Language: Citizen Of [place] Communication Ability: Effective Communication Ability Comment: appears to be intoxicated and/or under the influence of street drugs Suit Maker Required: No Beliefs That Will Affect Care: None Current Living Situation: Alone Other Information That Helps Us Care for You: No Feels Safe at Home: Yes Safety Concerns: Feels Safe At This Time Smoking Status: Former smoker Tobacco Type: smokeless tobacco Cigarettes Per Day: 20 Do You Dip or Chew Tobacco: Yes Second Hand Exposure: No Tobacco Cessation Education Requested by Patient: No Hx Alcohol Use: Yes Alcohol type: hard liquor Hx Substance Use: No Review of Systems Review of Systems: Patient was able to contribute to his review of systems due to current mental state. Physical Exam Physical Exam: The patient is at the time of my examination able to wake up, and answers the words "[employer]" to where are you, what is the name of this building, and what type of building is this. He is normocephalic and atraumatic, lying in bed and in no acute distress. HEENT--PERRL, EOMI, mucous membranes and oropharynx very dry. Neck--supple. No JVD. No bruits. Thyroid normal, trachea midline, no adenopathy. Heart--normal S1 and S2. No murmurs, rubs or gallops. Lungs--clear bilaterally, no respiratory distress, no accessory muscle use. Abdomen--normal bowel sounds and soft. Nontender. Nondistended, no hernias or masses, no organomegaly. Extremities--no cyanosis or clubbing. No edema. There are good distal pulses b/l. Dermatologic--normal skin turgor, normal color, no abnormal lymph nodes, no rash. Neurologic--cranial nerves II through XII grossly intact. Rheumatologic--normal range of motion. Psychiatric--disoriented, lethargic. Results & Data Vital Signs (Past 12 Hours) Vital Signs Temp Pulse Pulse Resp BP BP Pulse Ox 10/17/18 22:00 63 17 124/74 100 07/22/19 21:33 71 16 131/76 97 10/17/18 20:30 78 20 125/76 99 10/17/18 20:02 80 14 99 10/17/18 20:00 80 14 129/74 99 10/17/18 19:30 81 20 132/77 100 10/17/18 19:26 80 18 124/78 100 10/17/18 18:30 81 24 127/74 100 10/17/18 18:03 58 L 14 122/77 100 10/17/18 17:50 88 L 10/17/18 17:25 98.4 F 74 18 118/79 98 Laboratory Results Laboratory Results WBC 6.33 K/uL (4.8-10.8) 10/17/18 17:05 RBC 4.99 M/uL (4.7-6.1) 10/17/18 17:05 Hgb 16.3 g/dL (14.0-18.0) 10/17/18 17:05 Hct 45.3 % (42-52) 10/17/18 17:05 MCV 90.8 fL (80-100) 10/17/18 17:05 MCH 32.7 pg (25-34) 10/17/18 17:05 MCHC 36.0 g/dL (32-36) 10/17/18 17:05 RDW Std Deviation 42.8 fL (36.4-46.3) 10/17/18 17:05 RDW Coeff of Baldo 13.0 % (11.5-14.5) 10/17/18 17:05 Plt Count 224 K/uL (130-400) 10/17/18 17:05 MPV 8.9 fL (7.4-10.4) 10/17/18 17:05 Immature Gran % (Auto) 0.2 % 10/17/18 17:05 Neut % (Auto) 58.7 % 10/17/18 17:05 Lymph % (Auto) 35.7 % 10/17/18 17:05 Haralson % (Auto) 4.7 % 10/17/18 17:05 Eos % (Auto) 0.2 % 10/17/18 17:05 Baso % (Auto) 0.5 % 10/17/18 17:05 Immature Gran # (Auto) 0.01 K/uL (0.00-0.02) 10/17/18 17:05 Neut # (Auto) 3.72 K/uL (1.4-6.5) 10/17/18 17:05 Lymph # (Auto) 2.26 K/uL (1.2-3.4) 10/17/18 17:05 Haralson # (Auto) 0.30 K/uL (0.11-0.59) 10/17/18 17:05 Eos # (Auto) 0.01 K/uL (0-0.5) 10/17/18 17:05 Baso # (Auto) 0.03 K/uL (0-0.2) 10/17/18 17:05 PT 10.9 Seconds (9.0-12.0) 10/17/18 17:05 INR 1.1 (0.9-1.1) 10/17/18 17:05 APTT 26.5 Seconds (21.0-31.0) 10/17/18 17:05 PTT Ratio 1.0 10/17/18 17:05 Sodium 144 mmol/L (136-145) 10/17/18 17:05 Potassium 3.9 mmol/L (3.5-5.1) 10/17/18 17:05 Chloride 106 mmol/L (98-107) 10/17/18 17:05 Carbon Dioxide 26 mmol/L (21-32) 10/17/18 17:05 Anion Gap 13.0 (3-11) H 10/17/18 17:05 BUN 16 mg/dl (7-18) 10/17/18 17:05 Creatinine 0.82 mg/dl (0.6-1.4) 10/17/18 17:05 Est Cr Clr Drug Dosing 140.8 ml/min 10/17/18 17:05 Est GFR ( Amer) 133.7 10/17/18 17:05 Est GFR (Non-Af Amer) 115.4 10/17/18 17:05 BUN/Creatinine Ratio 19.5 (10-20) 10/17/18 17:05 Glucose 90 mg/dl (70-99) 10/17/18 17:05 Osmolality 447 mOsm/kg (280-300) H* 10/17/18 17:05 Calcium 8.0 mg/dl (8.5-10.1) L 10/17/18 17:05 Magnesium 2.3 mg/dl (1.8-2.4) 10/17/18 17:05 Total Bilirubin 0.7 mg/dl (0.2-1) 10/17/18 17:05 AST 153 U/L (15-37) H 10/17/18 17:05 ALT 93 U/L (12-78) H 10/17/18 17:05 Alkaline Phosphatase 115 U/L (45-117) 10/17/18 17:05 Total Creatine Kinase 2730 U/L (39-308) H 10/17/18 17:05 Troponin I < 0.015 ng/ml (0-0.045) 10/17/18 17:05 Total Protein 7.8 gm/dl (6.4-8.2) 10/17/18 17:05 Albumin 4.2 gm/dl (3.4-5.0) 10/17/18 17:05 Globulin 3.6 gm/dl (2.5-4.0) 10/17/18 17:05 Albumin/Globulin Ratio 1.2 (0.9-2) 10/17/18 17:05 Lipase 123 U/L (73-393) 10/17/18 17:05 Folate 9.76 ng/ml (>5.38) 10/18/18 00:15 Urine Color Yellow 10/17/18 Unknown Urine Appearance Clear (Clear) 10/17/18 Unknown Urine pH 5.0 (4.5-7.5) 10/17/18 Unknown Ur Specific Wiley 1.022 (1.000-1.030) 10/17/18 Unknown Urine Protein Trace (Negative) H 10/17/18 Unknown Urine Glucose (UA) Negative (Negative) 10/17/18 Unknown Urine Ketones Trace (Negative) H 10/17/18 Unknown Urine Blood Negative (Negative) 10/17/18 Unknown Urine Nitrite Negative (Negative) 10/17/18 Unknown Urine Bilirubin Negative (Negative) 10/17/18 Unknown Urine Urobilinogen Negative (Negative) 10/17/18 Unknown Ur Leukocyte Esterase Negative (Negative) 10/17/18 Unknown Urine WBC (Auto) 1-5 /hpf (0-5) 10/17/18 Unknown Urine RBC (Auto) 0-4 /hpf (0-4) 10/17/18 Unknown U Hyaline Cast (Auto) 1-5 /lpf (0-5) 10/17/18 Unknown U Epithel Cells (Auto) 10-20 /lpf (0-5) H 10/17/18 Unknown Urine Bacteria (Auto) Negative (Negative) 10/17/18 Unknown Salicylates < 1.7 mg/dl (2.8-20) L 10/17/18 17:57 Urine Opiates Screen Neg (Neg) 10/17/18 Unknown Ur Methadone, Qual Neg (Neg) 10/17/18 Unknown Acetaminophen < 2 ug/ml (10-30) L 10/17/18 17:57 Urine Barbiturates Neg (Neg) 10/17/18 Unknown Ur Phencyclidine (PCP) Neg (Neg) 10/17/18 Unknown U Amphetamin/Meth Scrn Neg (Neg) 10/17/18 Unknown MDMA (Ecstasy) Screen Pos (Neg) H 10/17/18 Unknown U Benzodiazepines Scrn Neg (Neg) 10/17/18 Unknown Ur Cocaine Metabolite Neg (Neg) 10/17/18 Unknown U Marijuana (THC) Screen Neg (Neg) 10/17/18 Unknown Ethyl Alcohol mg/dL 516.6 mg/dl (0-3) H 10/17/18 17:57 Diagnostic Findings [place], [place] [phone] CT Scan Report Patient: BENNIE ROMANAdmit Date: 10/17/18 MR#: [id number]: [id number] Acct ID:[id number]: [address] Date: 1985[facility] Zip: [place] [address] Age: 32Location: ED Sex: M Room/Bed: Att Phy: Diagnosis: UNRESPONESIVE Rosario Phy: Everardo Rogers D.O.Service Date: 10/17/18 Fam Phy: Everardo Rogers D.O.Interpreting Phy: Taiwo Lopez MD Admit Phy: Ordering Phy: Mark Kraus DO cc: ~ HEAD CT NONCONTRAST CT DOSE: 1228.53 mGy.cm HISTORY: Altered mental status. TECHNIQUE: Multiaxial CT images of the head were performed without the use of intravenous contrast. Automated exposure control was utilized for this study. A dose lowering technique was utilized adhering to the principles of ALARA. Comparison: None. Findings: The paranasal sinuses and mastoid air cells are clear. The calvarium and skull base are intact. The ventricles and sulci are within normal limits. There is no mass, hematoma, midline shift, or acute infarct. Impression: No acute intracranial abnormality. Electronically signed by: Taiwo Lopez M.D. 10/17/2018 6:20 PM Dictated: 10/17/181803 Transcribed: 10/17/181803 [place], [place] [phone] XRay Report Patient: BENNIE ROMANAdmit Date: 10/17/18 MR#: [id number]: [id number] Acct ID:[id number]: [address] Date: 1985[facility] Zip: [place] [address] Age: 32Location: ED Sex: M Room/Bed: Att Phy: Diagnosis: UNRESPONESIVE Rosario Phy: Everardo Rogers D.O.Service Date: 10/17/18 Fam Phy: Everardo Rogers D.O.Interpreting Phy: Franco Youssef MD Admit Phy: Ordering Phy: Mark Kraus DO cc: ~ XR chest 1V portable CLINICAL HISTORY: OD dyspnea COMPARISON STUDY: 03/08/2014 FINDINGS: The bones soft tissues and hemidiaphragms are normal. The cardiomediastinal silhouette is normal. The lungs are clear. The pulmonary vasculature is normal. IMPRESSION: Negative chest. The above report was generated using voice recognition software. It may contain grammatical, syntax or spelling errors. Electronically signed by: Franco Youssef M.D. 10/17/2018 6:07 PM Dictated: 10/17/181806 Transcribed: 10/17/181806 Code Status & VTE Plan Code Status Full code VTE Prophylaxis Plan VTE Prophylaxis will be ordered: Yes PG Care Time/CCT Total # of Minutes Spent Total Time Spent with Patient: Total time spent is greater than 50% in coordination of care (as documented) at patient's floor/unit and/or counseling patient:
[2018-10-17] MEDS ORDERED: ACETAMINOPHEN 325 MG TAB PO PRN (23:53)
[2018-10-17] MEDS ORDERED: LORazepam 3 MG/6 ML VIAL IV PRN (23:53)
[2018-10-17] MEDS ORDERED: MAGNESIUM HYDROXIDE SUSP 30 ML UDC PO PRN (23:53)
[2018-10-17] MEDS ORDERED: ALUMINUM/MAGNESIUM SUSP 30 ML UDC PO PRN (23:53)
[2018-10-17] MEDS ORDERED: LORazepam 2 MG/4 ML VIAL IV PRN (23:53)
[2018-10-17] MEDS ORDERED: ATIVAN IV ALCOHOL WITHDRAWL IV SCH (23:53)
[2018-10-18] MEDS: LORazepam 1 MG/2 ML VIAL IV PRN ×3 (00:45→06:06)
[2018-10-18] MEDS: THIAMINE HCL 100 MG TAB PO SCH ×2 (00:45→08:41)
[2018-10-18] MEDS: SODIUM CHLOR 0.45% + 20MEQ KCL 20 MEQ/1,000 ML BAG IV SCH ×4 (05:16→19:44)
[2018-10-18 05:20] LABS: BUN Creatinine Ratio 22.9 (10-20); Calcium 7.1 mg/dl (8.5-10.1); Creatinine Clr Calc Pharmacy 130.9 ml/min; Est GFR (African American) 148.1; Est GFR (Non-African American) 127.7; Magnesium 1.9 mg/dl (1.8-2.4); Potassium 3.9 mmol/L (3.5-5.1)
[2018-10-18] MEDS ORDERED: LORazepam 0.5 MG TAB PO STA (09:15)
[2018-10-18 11:32] LABS: BUN Creatinine Ratio 21.8 (10-20); Blood Urea Nitrogen 13 mg/dl (7-18); Calcium 7.9 mg/dl (8.5-10.1); Carbon Dioxide 28 mmol/L (21-32); Chloride 101 mmol/L (98-107); Est GFR (African American) > 150.0; Est GFR (Non-African American) 132.1; Glucose 108 mg/dl (70-99); Magnesium 1.9 mg/dl (1.8-2.4); Potassium 4.5 mmol/L (3.5-5.1); Sodium 137 mmol/L (136-145)
[2018-10-18] MEDS: ONDANSETRON INJ 2 MG/ML 2 ML VIAL IV PRN ×2 (12:28→18:28)
[2018-10-18] MEDS ORDERED: PROMETHAZINE HCL 12.5 MG/10 ML UDP PO PRN (15:11)
[2018-10-18] MEDS ORDERED: [UNRECOGNIZED DRUG - OTHER] SL SCH (15:15)
[2018-10-18 16:47] LABS: BUN Creatinine Ratio 18.3 (10-20); Blood Urea Nitrogen 11 mg/dl (7-18); Calcium 8.3 mg/dl (8.5-10.1); Carbon Dioxide 30 mmol/L (21-32); Chloride 96 mmol/L (98-107); Creatinine Clr Calc Pharmacy 144.4 ml/min; Est GFR (African American) > 150.0; Glucose 83 mg/dl (70-99); Magnesium 1.7 mg/dl (1.8-2.4); Potassium 3.9 mmol/L (3.5-5.1); Sodium 135 mmol/L (136-145)
[2018-10-18] MEDS ORDERED: FAMOTIDINE 20 MG TAB PO ONE (18:00)
--- NOTE | 2018-10-18 19:04 | Family Medicine Progress Note ---
Date of Service October 18, 2018 Assessment & Plan (1) Polysubstance overdose: 32 yo male presented to the ED after being found unresponsive at home on 10/17. Per EMS, he smelled of alcohol and there was a Trazadone bottle next to him (although not many pills were missing). He was admitted for monitoring of arrhythmias and placed on alcohol withdrawal scale. -BAL 516 on admission -drinking history: prior dx of alcoholism that was treated with suboxone; sober for several years; released from detention recently; just started drinking again last wednesday (8 days ago) -suspicion for withdrawal is low given patient has only been drinking heavily for past 8 days -on residential monitor -Head CT done in ED clear (rules out head trauma) -CXR done in ED clear (rules on aspiration) -on IVF -thiamine, 100mg, PO, qAM (2) Alcohol withdrawal -patient reports he has only resumed drinking habits for past 8 days -low suspicion for withdrawal potential -on residential monitor -sweaty skin on exam; reports anxiety (0.5mg Ativan given 10/18) (3) Nausea and Vomiting -Zofran increased to 8mg prn -Phenergan 12.5mg, once -consider adding H2 maria r if persistent (4) Hypocalcemia -7.1 on admission, now at 7.9 -likely secondary to low D -continue to monitor with daily BMPs FEN/GI: Normal Diet DVT Prophylaxis: heparin, 5,000 units, subq, q12 Code Status: Full code Dispo: on tele Present on Admission?: Yes Supervising Physician Co-Signing Physician Notes I personally examined the patient and verified all winkler points of history and exam, discussed case, and agree with decision making with Dr Christine. feeling lousy - dizzy and nauseated, but alert and talkative. used to drink really heavily - but up until last week was sober. over only about the last week he started drinking heavily again - yesterday only really remembers opening a bottle of liquor and drinking a lot, doesn't remember taking trazodone/etc. is not on suboxone - wants to be, but not actively in a clinic at this time - notes in the past it helped him w sobriety. vitals noted nad breathing unlabored no pallor or icterus. mentation intact. no focal neuro deficits. polysubstance OD -EtOH and trazodone -improving, QT OK -wants to be sober -follow for withdrawal but seems low risk given short time since he resumed EtOH -supportive care nausea/dizziness -almost certainly after-effects of massive EtOH intoxication -supportive care electrolyte deficiencies -acutely appearing related to EtOH abuse and likely poor quality PO intake otherwise -outpt vitamin D level reasonable -PO intake should improve otherwise otherwise as above Subjective patient reports that he was outside for several hours in a row yesterday, started to feel very hot and went inside his apartment intending to make one drink. He drank more than he intended to; he does not recall taking tramadol. He feels very unsteady and ill at present. He clarifies that he is not currently on suboxone; he was int he past for his alcoholism; he desires to be set up with a suboxone clinic post-discharge. He gave consent for the team to relay medical information with his Aunt Carole. Review of Systems Review of Systems: Constitutional: No fevers, chills, night sweats, or fatigue or unintentional weight loss Cardiovascular: No chest pain, palpitations Respiratory: No SOB Gastrointestinal: nausea and vomiting, no abdominal pain Psychiatry: has feelings anxiety Physical Exam Constitutional: well developed and well nourished; no acute distress skin is moist (sweaty) Eyes: + anicteric sclerae Respiratory: normal respiratory effort, lungs clear to auscultation Cardiovascular: RRR, no murmur, no edema Heart Sounds: normal S1 and normal S2; no click, no gallop, no murmur and no cardiac rub Gastrointestinal (Abdomen): normal bowel sounds, soft, nontender, no hepatosplenomegaly Neurologic: awake (but drowsy) no tremor noted Psychiatric: Orientation: oriented x 3 Genitourinary: wearing depends Results & Data Vital Signs (Past 12 Hours) Vital Signs Temp Pulse Pulse Resp BP Pulse Ox 10/18/18 15:38 62 10/18/18 14:46 36.6 C 50 L 18 143/77 H 100 10/18/18 11:11 36.8 C 68 18 148/85 H 99 10/18/18 07:32 77 10/18/18 07:27 36.6 C 74 18 134/73 100 Laboratory Results 10/18/18 10/18/18 10/18/18 Range/Units 16:23 16:23 10:38 Sodium 135 L 137 (136-145) mmol/L Potassium 3.9 4.5 D (3.5-5.1) mmol/L Chloride 96 L 101 (98-107) mmol/L Carbon Dioxide 30 28 (21-32) mmol/L Anion Gap 9.0 8.0 (3-11) BUN 11 13 (7-18) mg/dl Creatinine 0.58 L 0.59 L (0.6-1.4) mg/dl Est Cr Clr Drug Dosing 144.4 142.0 ml/min Est GFR ( Amer) > 150.0 > 150.0 Est GFR (Non-Af Amer) 133.0 132.1 BUN/Creatinine Ratio 18.3 21.8 H (10-20) Glucose 83 108 H (70-99) mg/dl Osmolality 290 (280-300) mOsm/kg Calcium 8.3 L 7.9 L (8.5-10.1) mg/dl Magnesium 1.7 L 1.9 (1.8-2.4) mg/dl Folate (>5.38) ng/ml 10/18/18 10/18/18 10/18/18 Range/Units 10:38 04:51 04:51 Sodium 142 (136-145) mmol/L Potassium 3.9 (3.5-5.1) mmol/L Chloride 106 (98-107) mmol/L Carbon Dioxide 26 (21-32) mmol/L Anion Gap 10.0 (3-11) BUN 15 (7-18) mg/dl Creatinine 0.64 (0.6-1.4) mg/dl Est Cr Clr Drug Dosing 130.9 ml/min Est GFR ( Amer) 148.1 Est GFR (Non-Af Amer) 127.7 BUN/Creatinine Ratio 22.9 H (10-20) Glucose 94 (70-99) mg/dl Osmolality 324 H 359 H* (280-300) mOsm/kg Calcium 7.1 L (8.5-10.1) mg/dl Magnesium 1.9 (1.8-2.4) mg/dl Folate (>5.38) ng/ml 10/18/18 Range/Units 00:15 Sodium (136-145) mmol/L Potassium (3.5-5.1) mmol/L Chloride (98-107) mmol/L Carbon Dioxide (21-32) mmol/L Anion Gap (3-11) BUN (7-18) mg/dl Creatinine (0.6-1.4) mg/dl Est Cr Clr Drug Dosing ml/min Est GFR ( Amer) Est GFR (Non-Af Amer) BUN/Creatinine Ratio (10-20) Glucose (70-99) mg/dl Osmolality (280-300) mOsm/kg Calcium (8.5-10.1) mg/dl Magnesium (1.8-2.4) mg/dl Folate 9.76 (>5.38) ng/ml Medications Administered Current Inpatient Medications Acetaminophen (Tylenol) 650 mg PO Q4H PRN PRN Reason: Pain or Fever Stop: 11/16/18 23:52 Last Admin: 10/18/18 18:28 Dose: 650 mg Documented by: Al Hydrox/Mg Hydrox/Simethicone (Maalox) 15 ml PO Q4H PRN PRN Reason: Dyspepsia Stop: 11/16/18 23:52 Lorazepam (Ativan) 1 mg in 2 mls @ 2 mls/min IV UD PRN; Protocol PRN Reason: EtOH Withdrawl AWSS Score 6,7 Stop: 11/16/18 23:52 Last Admin: 10/18/18 06:06 Dose: 2 mls/min Documented by: Lorazepam (Ativan) 2 mg in 4 mls @ 4 mls/min IV UD PRN; Protocol PRN Reason: EtOH Withdrawl AWSS Score 8,9 Stop: 11/16/18 23:52 Lorazepam (Ativan) 3 mg in 6 mls @ 4 mls/min IV ONCE PRN; Protocol PRN Reason: EtOH Withdrawl AWSS Score >=10 Stop: 11/16/18 23:52 Potassium Chloride/Sodium Chloride (1/2 Nss + 20meq Kcl 1000ml) 20 meq in 1,000 mls @ 200 mls/hr IV .Q5H YOCASTA Stop: 11/17/18 04:29 Last Admin: 10/18/18 14:38 Dose: 200 mls/hr Documented by: Magnesium Hydroxide (Milk Of Magnesia) 30 ml PO Q12H PRN PRN Reason: Constipation Stop: 11/16/18 23:52 Ondansetron HCl (Zofran) 4 mg IV Q6H PRN PRN Reason: Nausea Stop: 11/16/18 23:52 Last Admin: 10/18/18 18:28 Dose: 4 mg Documented by: Promethazine HCl (Phenergan) 12.5 mg PO ONCE PRN PRN Reason: Nausea And Vomiting Stop: 11/17/18 15:10 Last Admin: 10/18/18 16:36 Dose: 12.5 mg Documented by: Thiamine HCl (Vitamin B-1) 100 mg PO QAM [facility] Stop: 11/16/18 23:52 Last Admin: 10/18/18 08:41 Dose: 100 mg Documented by: PG Care Time/CCT Total # of Minutes Spent Total Time Spent with Patient: Total time spent is greater than 50% in coordination of care (as documented) at patient's floor/unit and/or counseling patient: Resident Activity Tracking Resident Involvement: Resident Care Provided Care Provided: Adult Hospital Medicine
[2018-10-18] MEDS ORDERED: ONDANSETRON INJ 2 MG/ML 2 ML VIAL IV PRN (19:08)
[2018-10-18] MEDS ORDERED: ONDANSETRON HCL 8 MG in DEXTROSE 5% 50 ML IV PRN (19:17)
[2018-10-18] MEDS ORDERED: HEPARIN SOD 5,000 UNIT/0.5 ML VIAL SQ SCH (19:25)
[2018-10-18] MEDS ORDERED: ZOLPIDEM TARTRATE 5 MG TAB PO ONE (21:19)
[2018-10-18 22:55] LABS: BUN Creatinine Ratio 14.4 (10-20); Calcium 8.4 mg/dl (8.5-10.1); Creatinine Clr Calc Pharmacy 111.7 ml/min; Est GFR (African American) 138.7; Est GFR (Non-African American) 119.7; Magnesium 1.7 mg/dl (1.8-2.4); Potassium 3.6 mmol/L (3.5-5.1)
[2018-10-19] MEDS: SODIUM CHLOR 0.45% + 20MEQ KCL 20 MEQ/1,000 ML BAG IV SCH (00:15)
[2018-10-19] MEDS ORDERED: POTASSIUM CHLORIDE 20 MEQ TABCR PO STA (00:32)
[2018-10-19] MEDS ORDERED: MAGNESIUM OXIDE 400 MG TAB PO ONE (00:35)
--- NOTE | 2018-10-19 07:26 | Family Medicine Progress Note ---
Date of Service October 19, 2018 Assessment & Plan (1) Polysubstance overdose: 32 yo male presented to the ED after being found unresponsive at home on 10/17. Per EMS, he smelled of alcohol and there was a Trazadone bottle next to him (although not many pills were missing). He was admitted for monitoring of arrhythmias and placed on alcohol withdrawal scale. -BAL 516 on admission -drinking history: prior dx of alcoholism that was treated with suboxone; sober for several years; released from intermediate recently; just started drinking again last wednesday (8 days ago) -suspicion for withdrawal is low given patient has only been drinking heavily for past 8 days -on race starter -Head CT done in ED clear (rules out head trauma) -CXR done in ED clear (rules on aspiration) -on IVF -thiamine, 100mg, PO, qAM (2) Alcohol withdrawal -patient reports he has only resumed drinking habits for past 8 days -low suspicion for withdrawal potential -on race starter -sweaty skin on exam; reports anxiety (0.5mg Ativan given 10/18) (3) Nausea and Vomiting -Zofran increased to 8mg prn -Phenergan 12.5mg, once -consider adding H2 maria r if persistent (4) Hypocalcemia -7.1 on admission, now at 7.9 -likely secondary to low D -continue to monitor with daily BMPs FEN/GI: Normal Diet DVT Prophylaxis: heparin, 5,000 units, subq, q12 Code Status: Full code Dispo: on tele Subjective patient reports that he was outside for several hours in a row yesterday, started to feel very hot and went inside his apartment intending to make one drink. He drank more than he intended to; he does not recall taking tramadol. He feels very unsteady and ill at present. He clarifies that he is not currently on suboxone; he was int he past for his alcoholism; he desires to be set up with a suboxone clinic post-discharge. He gave consent for the team to relay medical information with his Aunt Carole. Review of Systems Review of Systems: Constitutional: No fevers, chills, night sweats, or fatigue or unintentional weight loss Cardiovascular: No chest pain, palpitations Respiratory: No SOB Gastrointestinal: nausea and vomiting, no abdominal pain Psychiatry: has feelings anxiety Physical Exam Constitutional: well developed and well nourished; no acute distress Eyes: + anicteric sclerae Respiratory: normal respiratory effort, lungs clear to auscultation Cardiovascular: RRR, no murmur, no edema Heart Sounds: normal S1 and normal S2; no click, no gallop, no murmur and no cardiac rub Gastrointestinal (Abdomen): normal bowel sounds, soft, nontender, no hepatosplenomegaly Neurologic: awake (but drowsy) Psychiatric: Orientation: oriented x 3 Results & Data Vital Signs (Past 12 Hours) Vital Signs Temp Pulse Pulse Resp BP BP Pulse Ox 10/19/18 05:45 36.7 C 99 H 19 131/83 97 10/19/18 04:13 37.1 C 73 16 138/80 97 10/19/18 00:52 36.9 C 51 L 18 135/61 96 10/19/18 00:00 66 10/18/18 23:07 37.0 C 61 18 136/84 97 10/18/18 19:48 36.9 C 59 L 18 130/69 95 PG Care Time/CCT Total # of Minutes Spent Total Time Spent with Patient: Total time spent is greater than 50% in coordination of care (as documented) at patient's floor/unit and/or counseling patient: Resident Activity Tracking Resident Involvement: Resident Care Provided Care Provided: Adult Hospital Medicine
[2018-10-19 07:41] LABS: BUN Creatinine Ratio 14.6 (10-20); Calcium 8.3 mg/dl (8.5-10.1); Creatinine Clr Calc Pharmacy 126.9 ml/min; Est GFR (African American) 146.2; Est GFR (Non-African American) 126.1; Magnesium 1.8 mg/dl (1.8-2.4); Phosphorus 2.4 mg/dl (2.5-4.9)
[2018-10-19] MEDS ORDERED: FAMOTIDINE 20 MG TAB PO ONE (08:35)
[2018-10-19] MEDS: THIAMINE HCL 100 MG TAB PO SCH (08:55)
[2018-10-19] MEDS ORDERED: FOLIC ACID 1 MG TAB PO SCH (09:00)
[2018-10-19] MEDS ORDERED: IBUPROFEN 200 MG TAB PO STA (09:41)
--- NOTE | 2018-10-19 18:40 | Discharge Summary ---
Date of Service October 19, 2018 Admission HPI Per Admitting Provider The patient is a 32-year-old male who was brought to the emergency department unresponsive by EMS, with concerns regarding alcohol and trazodone misuse. ED reports that the number of pills that were available in the prescription bottle of trazodone suggested that the patient did not take excessive amounts. Work-up in the emergency department included laboratories, which showed alcohol level of 516.6, and a serum osmolality of 447. Urine drug screen was positive for ecstasy, with confirmation pending, and liver tests were abnormal. He was then referred for evaluation for admission. Principal Diagnosis Polysubstance overdose Discharge Exam General he is awake and alert pleasant no distress. HEENT normocephalic atraumatic mucous members are moist. Breathing unlabored no accessory muscle use good effort. Skin shows no rashes no pallor or icterus. Mental status is intact with good recent and remote recall reasonable judgment and insight. Discharge Data Allergies Allergy/AdvReac Type Severity Reaction Status Date / Time No Known Allergies Allergy Unverified 07/09/16 16:44 Consultations 10/17/18 20:35 ED Decision to Admit Stat 10/17/18 23:53 Consult Case Management - Discharge Planning Routine Ordered Studies 10/17/18 17:25 CT head/brain wo con Stat Hospital Course (1) Polysubstance overdose: Alcohol and trazodone. Fortunately he recovered well and required no specific intervention. (2) Alcohol overdose: He had a markedly elevated blood alcohol level at 516. We discussed that this could even be high enough to potentially be a lethal dose, and fortunately he is done okay. He used to drink heavily, but it only resumed drinking in the last week or so, and showed no signs of withdrawal. He also expressed a desire to quit drinking again, noting that before he did well at a Suboxone clinic so information was provided for him to call. He appears stable for discharge For now we will be discharging him on thiamine and folate to be safe, given that he did have a prior history of alcohol abuse. (3) Hypokalemia: Likely related to the last week of alcohol superseding reasonable oral intake. Outpatient follow-up (4) Hypocalcemia: See above with hypokalemia, although vitamin D deficiency may also play a role. This can be followed up as an outpatient, given the acuity of the situation his level may have been artificially low and therefore was not drawn during this hospitalization. (5) Atrial ectopy: It atrial and ventricular ectopy overnight, as well as a degree of bradycardia with escape rhythm. This is likely all physiologically within normal range for a 32-year-old male who appears to have a healthy cardiac sy stem, but an echocardiogram was checked by the night team and for all intents and purposes was normal. (6) Gastritis: Related to his excessive alcohol intake. Zofran and Pepcid were provided. Total Time Total Time Spent Total Time Spent (In Minutes): Greater than 30 Discharge Plan Discharge Items Patient Disposition: Home - Self-Care Reason For Visit: UNRESPONESIVENESS,ALCOHOL OVERDOSE,SEVERE DEHYDRAT Discharge Diagnosis: alcohol overdose Discharge Goals: Therapeutic intervention Activity: Resume your previous activity Non-emergency contact: Primary Care Provider Call non-emergency contact if: your symptoms worsen Follow-up/Referrals: [facility] [Other] (Please, follow up at [facility] in [place]. *You have to call to arrange an appointment. The phone number is [phone]. The Clinic is located at [address] [place] [address] in [place].) Bandar Barnett CRNP [Nurse Practitioner] - 10/26/18 9:50 am (Please, follow up at [facility] [place] Office with Bandar JASMINE on WednesdayOctober 26 at 9:50 am. *The office is located next to [email or web address]. If you have any questions, call the office at [phone].) Diet: Regular Addtl Provider Instructions: alcohol overdose -on arrival your blood alcohol was 516 (0.516) -- this is actually high enough that it was a near-lethal level of intoxication. truthfully, you're jolynn that you came through this without needing to be in the ICU on a ventilator, and fairly jolynn (especially accounting for the trazodone as well) that you didn't simply stop breathing and at home. -your ongoing stomach issues and dizziness should improve over the next few days -this level of intoxication essentially creates "an enormous hangover" so it's no surprise that it will take a few days for you to feel better -during that time, you can take the ondansetron (zofran) up to every 8 hours as needed for nausea, and we would have you take the pepcid (famotidine) twice a day for the next few days to keep your stomach more settled -eat small meals and simple foods until you're feeling better -definitely avoid alcohol (and also avoid other things that can be hard on your liver and stomach such as tylenol (acetaminophen) and ibuprofen (motrin, advil) -we'll have you on folic acid and thiamine for the time being, as heavy drinking can be hard on your brain cells as well, and these vitamins can help blunt some of those effects -the suboxone clinic in [place] will be able to see you for evaluation for maintenance therapy, but it is a situation that we're not able to make the referral on your behalf - but just call the phone number to get things set up -follow up regularly with your PCP to stay on top of things and make sure you're doing well overall, as well as to help with anxiety/etc as needed Prescriptions: New thiamine HCl (vitamin B1) [Vitamin B-1] 100 mg Tablet 100 mg PO QAM Qty: 30 RF: 0 folic acid 1 mg Tablet 1 mg PO QAM Qty: 30 RF: 0 ondansetron 4 mg tablet,disintegrating 4 mg PO Q8H PRN (Reason: nausea and vomiting) Qty: 20 RF: 0 famotidine [Pepcid] 20 mg tablet 20 mg PO BID Qty: 10 RF: 0 Discontinued BUPRENORPHINE HCL-NALOXONE HCL (SUBOXONE 8-2 MG) 1 SUB SUB 1 tab Sublingual DAILY Qty: 0 RF: 0 Buspirone HCl 10 MG tablet 2 tabs PO HS Qty: 60 RF: 0 CLONIDINE HCL (Catapres) 0.1 MG tablet 1 tab PO BID Qty: 60 RF: 0 QUETIAPINE FUMARATE (SEROQUEL) 200 MG tablet 1 tab PO HS Qty: 30 RF: 0 Sertraline HCl 100 MG tablet 1 tab PO DAILY Qty: 30 RF: 0 Stand-Alone Forms: [facility] Discharge Orders: Discharge Order (Routine); Ordered 10/19/18 Ordered By: Nick Cisneros Admission Data Admit Date/Time: 10/17/18 22:30 Attending Provider: Nick Cisneros Admit Provider: Raz Boyer Primary Care Provider: PCP,NO Other Providers: Raz Boyer Service: Telemetry Medical Other Interventions: Discharge Summary Assessment (RN) Last Done: 10/19/18 13:52 DC Date/Time DO NOT enter until pt leaves facility: 10/19/18 15:30
== END 2018-10-19 15:30 | disposition home or self-care (01) | DRG 918 ==
LOC: ED 17:19 → SUATTDRO 22:30 → 2N 22:30

== ENCOUNTER 2018-11-27 08:56 | Observation (INO) ==
[2018-11-27] MEDS ORDERED: NALOXONE HCL INJ 1 MG/ML 2ML SYR INTNAS ONE (09:36)
--- NOTE | 2018-11-27 10:02 | Emergency Department Note ---
ED Provider Note CHIEF COMPLAINT: Unresponsive, alcohol intoxication HISTORY OF PRESENTING ILLNESS: This is a 33-year-old male who presents to the emergency department via taxi with concern for being unresponsive. The patient was reportedly discharged from the emergency department at 6:30 AM this morning after being evaluated for more than 11 hours overnight for alcohol intoxication. His alcohol level last night was 416.5 mg/dL. This is the patient's third visit to the emergency department in the past 2 days for alcohol related intoxication. Per nursing staff, the patient did wake up briefly and spoke to them while they were getting him undressed, but has been unresponsive since that time. He is breathing normally. Patient is unable to provide any useful history. REVIEW OF SYSTEMS: Limited review of systems due to altered mental status. Posi tives and negatives listed in the history of present illness. PAST MEDICAL HISTORY: History of alcohol abuse, opiate abuse, polysubstance overdose, anxiety SOCIAL HISTORY: Lives at home, current tobacco user, known history of alcohol and opioid abuse ALLERGIES: No known allergies per chart PHYSICAL EXAM: CONSTITUTIONAL: Somnolent, minimal response to painful stimulus only. Smells strongly of alcohol. No acute distress. HEENT: Normocephalic. Right scalp and right facial abrasions with mild swelling noted. PERRL. TMs normal with no hemotympanum bilaterally. Moist mucous membranes. No damaged teeth noted. NECK: No swelling or ecchymosis noted. RESPIRATORY: Breathing independently and maintaining airway. No tachypnea or labored breathing noted. Clear to auscultation bilaterally with no wheezing, crackles, rhonchi or stridor. Equal expansion bilaterally. CARDIOVASCULAR: Bradycardic, regular rhythm with no murmurs, rubs or gallops. Normal peripheral perfusion, 2+ pulses in all 4 extremities. No edema. GASTROINTESTINAL: Soft, nontender, nondistended. No palpable masses or HSM. Bowel sounds present in all quadrants. MUSCULOSKELETAL: Full range of motion of all joints without discomfort. INTEGUMENTARY: No rash or other significant dermatologic conditions noted. NEUROLOGIC: Somnolent, responds to painful stimulus only. GCS 7. ED COURSE AND MEDICAL DECISION MAKING: CC: Patient presenting with complaint of unresponsive, alcohol intoxication DIFFERENTIAL DIAGNOSIS: Includes, but not limited to Hypoglycemia, Barbiturate Toxicity, Benzodiazepine Toxicity, Depression and Suicidality, Diabetic Ketoacidosis, Encephalitis, Ethylene Glycol Toxicity, Meningitis, Metabolic Acidosis, Opioid Toxicity, CVA, TIA, Intracranial Abnormality, Acute Psychosis, Amongst Others. INTERPRETATION OF LABS: No leukocytosis, no anemia, normal platelets, no significant electrolyte abnormalities, normal renal function, normal liver enzymes. Ammonia level within normal limits. Coagulation factors within normal limits. UA negative. Urine drug screen negative. Serum alcohol level s ignificantly elevated. IMAGING: HEAD CT NONCONTRAST CT DOSE: 614.27 mGy.cm HISTORY: Altered mental status. TECHNIQUE: Multiaxial CT images of the head were performed without the use of intravenous contrast. Automated exposure control was utilized for this study. A dose lowering technique was utilized adhering to the principles of ALARA. Comparison: Head CT 11/26/2018. Findings: Small retention cyst within the floor the right maxillary sinus. The mastoid air cells are clear. The calvarium and skull base are intact. The ventricles and sulci are within normal limits. There is no mass, hematoma, midline shift, or acute infarct. Impression: No acute intracranial abnormality. MEDICATION RECONCILIATION: I attest that I have personally reviewed the patient's current medication list. INITIAL VITAL SIGNS REVIEW: I reviewed the patient's initial vital signs and interpret them as follows: T: Afebrile; BP: Normotensive; HR: Bradycardic; RR: Within normal limits; Pulse Ox: Within normal limits on room air. Blood pressure screening: The patient was found to have normal blood pressure on screening and does not require follow-up for repeat blood pressure check. MDM SUMMARY: Patient was evaluated at bedside, history and physical exam performed. Patient is somnolent, does not respond to verbal or tactile stimulation, minimally responds to painful stimulation. GCS 7. Breathing independently and maintaining airway. No respiratory distress. No bradypnea or tachypnea. He does smell strongly of alcohol, and note is made with review of his chart that he was just discharged this morning after observation for alcohol intoxication. Orders were placed at bedside for labs, alcohol level, UA, blood glucose, urine drug screen, CT head to evaluate for altered mental status. Patient discussed with Dr. Nolan, who also evaluated the patient at bedside and agrees with my assessment, plan, and disposition. Labs and imaging reviewed as above, labs are notable for significantly elevated alcohol level, which has increased from his level more than [address] is negative. Given the patient's return with persistent somnolence and an increased alcohol level without known further alcohol consumption, as well as his chronic alcohol and polysubstance abuse history and concern for withdrawal symptoms, I did feel that it was reasonable for the patient to be admitted for further observation. I discussed the patient with Dr. Izquierdo, [facility] Hospitalist, who agrees to evaluate the patient for admission. Banana bag IV was ordered for the patient per her request. Patient reassessed multiple times throughout ED stay, he has remained hemodynamically stable, maintaining his airway and maintaining his sats with 2 L oxygen. Nursing staff reports that he has occasionally woken up briefly and yelled at them, but the patient does not respond to me on subsequent evaluations. Patient will be admitted to the medicine service for further observation for alcohol overdose and possible withdrawal. Patient was stable at time of admission. The chart was completed utilizing [employer] Speech voice recognition software. Grammatical errors, random word insertions, pronoun errors, and incomplete sentences are an occasional consequence of this system due to software l imitations, ambient noise, and hardware issues. Any formal questions or concerns about the content, text, or information contained within the body of this dictation should be directly addressed to the nurse practitioner for clarification. 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 Required: No Beliefs That Will Affect Care: None marital status: Single Current Living Situation: Alone Other Information That Helps Us Care for You: No Feels Safe at Home: Yes Safety Concerns: Feels Safe At This Time Smoking Status: Former smoker Tobacco Type: smokeless tobacco ; Cigarettes Per Day: 20 ; Do You Dip or Chew Tobacco: Yes ; Second Hand Exposure: No ; Tobacco Cessation Education Requested by Patient: No Hx Alcohol Use: Yes Alcohol type: hard liquor Hx Substance Use: No Results & Data Vital Signs Vital Signs - 24 hr 11/27/18 08:56 11/27/18 09:42 11/27/18 09:55 Temperature 36.3 C L Temperature Source Oral Sepsis Recent Fever Within 48 Hours No Sepsis New/Unexplained Change in Mental Status No Sepsis Action Taken by Nursing No Action Required Pulse Rate 53 L Pulse Rate [Finger] 69 Pulse Rhythm Regular Pulse Strength Normal Respiratory Rate 13 16 Respiratory Effort / Characteristics Non-Labored Spontaneous Respiratory Depth Normal Respiratory Pattern Regular Blood Pressure 115/69 Blood Pressure [Left Arm] 121/69 Blood Pressure Mean 84 Blood Pressure Mean [Left Arm] 86 Blood Pressure Position Lying Pulse Oximetry 93 99 100 Oxygen Delivery Method Room Air Nasal Cannula Room Air Oxygen Flow Rate 2 11/27/18 10:18 Temperature Temperature Source Sepsis Recent Fever Within 48 Hours Sepsis New/Unexplained Change in Mental Status Sepsis Action Taken by Nursing Pulse Rate Pulse Rate [Finger] 57 L Pulse Rhythm Pulse Strength Respiratory Rate 16 Respiratory Effort / Characteristics Respiratory Depth Respiratory Pattern Blood Pressure Blood Pressure [Left Arm] 110/69 Blood Pressure Mean Blood Pressure Mean [Left Arm] 82 Blood Pressure Position Pulse Oximetry 100 Oxygen Delivery Method Oxygen Flow Rate Laboratory Data Result diagrams: 11/28/18 06:55 11/28/18 06:55 Lab Results 11/27/18 11/27/18 11/27/18 Range/Units 09:56 09:56 11:49 WBC (4.8-10.8) K/uL RBC (4.7-6.1) M/uL Hgb (14.0-18.0) g/dL Hct (42-52) % MCV (80-100) fL MCH (25-34) pg MCHC (32-36) g/dL RDW Std Deviation (36.4-46.3) fL RDW Coeff of Baldo (11.5-14.5) % Plt Count (130-400) K/uL MPV (7.4-10.4) fL Immature Gran % (Auto) % Neut % (Auto) % Lymph % (Auto) % Mingo % (Auto) % Eos % (Auto) % Baso % (Auto) % Immature Gran # (Auto) (0.00-0.02) K/uL Neut # (Auto) (1.4-6.5) K/uL Lymph # (Auto) (1.2-3.4) K/uL Mingo # (Auto) (0.11-0.59) K/uL Eos # (Auto) (0-0.5) K/uL Baso # (Auto) (0-0.2) K/uL PT (9.0-12.0) Seconds INR (0.9-1.1) APTT (21.0-31.0) Seconds PTT Ratio Sodium 146 H (136-145) mmol/L Potassium 3.8 (3.5-5.1) mmol/L Chloride 110 H (98-107) mmol/L Carbon Dioxide 26 (21-32) mmol/L Anion Gap 9.0 (3-11) BUN 15 (7-18) mg/dl Creatinine 0.71 (0.6-1.4) mg/dl Est Cr Clr Drug Dosing Not Reportable Est GFR ( Amer) 140.9 Est GFR (Non-Af Amer) 121.6 BUN/Creatinine Ratio 21.1 H (10-20) Glucose 172 H (70-99) mg/dl POC Glucose (70-99) Calcium 7.8 L (8.5-10.1) mg/dl Total Bilirubin 0.3 (0.2-1) mg/dl AST 50 H (15-37) U/L ALT 36 (12-78) U/L Alkaline Phosphatase 75 (45-117) U/L Ammonia (11-32) umol/L Total Protein 6.6 (6.4-8.2) gm/dl Albumin 3.5 (3.4-5.0) gm/dl Globulin 3.1 (2.5-4.0) gm/dl Albumin/Globulin Ratio 1.1 (0.9-2) Urine Color Urine Appearance (Clear) Urine pH (4.5-7.5) Ur Specific George (1.000-1.030) Urine Protein (Negative) Urine Glucose (UA) (Negative) Urine Ketones (Negative) Urine Blood (Negative) Urine Nitrite (Negative) Urine Bilirubin (Negative) Urine Urobilinogen (Negative) Ur Leukocyte Esterase (Negative) Urine RBC (0-4) /hpf Urine WBC (0-5) /hpf Ur Epithelial Cells (0-5) /lpf Urine Bacteria (Negative) Hyaline Casts (0-5) /lpf Urine Opiates Screen Neg (Neg) Ur Methadone, Qual Neg (Neg) Urine Barbiturates Neg (Neg) Ur Phencyclidine (PCP) Neg (Neg) U Amphetamin/Meth Scrn Neg (Neg) MDMA (Ecstasy) Screen Neg (Neg) U Benzodiazepines Scrn Neg (Neg) Ur Cocaine Metabolite Neg (Neg) U Marijuana (THC) Screen Neg (Neg) Ethyl Alcohol mg/dL 475.4 H (0-3) mg/dl 11/27/18 11/27/18 11/27/18 Range/Units 11:49 12:01 12:01 WBC 8.82 (4.8-10.8) K/uL RBC 4.29 L (4.7-6.1) M/uL Hgb 14.1 (14.0-18.0) g/dL Hct 39.3 L (42-52) % MCV 91.6 (80-100) fL MCH 32.9 (25-34) pg MCHC 35.9 (32-36) g/dL RDW Std Deviation 45.9 (36.4-46.3) fL RDW Coeff of Baldo 13.9 (11.5-14.5) % Plt Count 248 (130-400) K/uL MPV 8.4 (7.4-10.4) fL Immature Gran % (Auto) 0.3 % Neut % (Auto) 59.0 % Lymph % (Auto) 37.2 % Mingo % (Auto) 2.7 % Eos % (Auto) 0.6 % Baso % (Auto) 0.2 % Immature Gran # (Auto) 0.03 H (0.00-0.02) K/uL Neut # (Auto) 5.20 (1.4-6.5) K/uL Lymph # (Auto) 3.28 (1.2-3.4) K/uL Mingo # (Auto) 0.24 (0.11-0.59) K/uL Eos # (Auto) 0.05 (0-0.5) K/uL Baso # (Auto) 0.02 (0-0.2) K/uL PT 10.2 (9.0-12.0) Seconds INR 1.0 (0.9-1.1) APTT 24.4 (21.0-31.0) Seconds PTT Ratio 0.9 Sodium (136-145) mmol/L Potassium (3.5-5.1) mmol/L Chloride (98-107) mmol/L Carbon Dioxide (21-32) mmol/L Anion Gap (3-11) BUN (7-18) mg/dl Creatinine (0.6-1.4) mg/dl Est Cr Clr Drug Dosing Est GFR ( Amer) Est GFR (Non-Af Amer) BUN/Creatinine Ratio (10-20) Glucose (70-99) mg/dl POC Glucose (70-99) Calcium (8.5-10.1) mg/dl Total Bilirubin (0.2-1) mg/dl AST (15-37) U/L ALT (12-78) U/L Alkaline Phosphatase (45-117) U/L Ammonia (11-32) umol/L Total Protein (6.4-8.2) gm/dl Albumin (3.4-5.0) gm/dl Globulin (2.5-4.0) gm/dl Albumin/Globulin Ratio (0.9-2) Urine Color Yellow Urine Appearance Clear (Clear) Urine pH 5.5 (4.5-7.5) Ur Specific George 1.013 (1.000-1.030) Urine Protein Negative (Negative) Urine Glucose (UA) Negative (Negative) Urine Ketones Trace H (Negative) Urine Blood Trace H (Negative) Urine Nitrite Negative (Negative) Urine Bilirubin Negative (Negative) Urine Urobilinogen Negative (Negative) Ur Leukocyte Esterase Negative (Negative) Urine RBC 0-4 (0-4) /hpf Urine WBC 0-5 (0-5) /hpf Ur Epithelial Cells 0-5 (0-5) /lpf Urine Bacteria Negative (Negative) Hyaline Casts 0-5 (0-5) /lpf Urine Opiates Screen (Neg) Ur Methadone, Qual (Neg) Urine Barbiturates (Neg) Ur Phencyclidine (PCP) (Neg) U Amphetamin/Meth Scrn (Neg) MDMA (Ecstasy) Screen (Neg) U Benzodiazepines Scrn (Neg) Ur Cocaine Metabolite (Neg) U Marijuana (THC) Screen (Neg) Ethyl Alcohol mg/dL (0-3) mg/dl 11/27/18 11/27/18 Range/Units 12:02 12:20 WBC (4.8-10.8) K/uL RBC (4.7-6.1) M/uL Hgb (14.0-18.0) g/dL Hct (42-52) % MCV (80-100) fL MCH (25-34) pg MCHC (32-36) g/dL RDW Std Deviation (36.4-46.3) fL RDW Coeff of Baldo (11.5-14.5) % Plt Count (130-400) K/uL MPV (7.4-10.4) fL Immature Gran % (Auto) % Neut % (Auto) % Lymph % (Auto) % Mingo % (Auto) % Eos % (Auto) % Baso % (Auto) % Immature Gran # (Auto) (0.00-0.02) K/uL Neut # (Auto) (1.4-6.5) K/uL Lymph # (Auto) (1.2-3.4) K/uL Mingo # (Auto) (0.11-0.59) K/uL Eos # (Auto) (0-0.5) K/uL Baso # (Auto) (0-0.2) K/uL PT (9.0-12.0) Seconds INR (0.9-1.1) APTT (21.0-31.0) Seconds PTT Ratio Sodium (136-145) mmol/L Potassium (3.5-5.1) mmol/L Chloride (98-107) mmol/L Carbon Dioxide (21-32) mmol/L Anion Gap (3-11) BUN (7-18) mg/dl Creatinine (0.6-1.4) mg/dl Est Cr Clr Drug Dosing Est GFR ( Amer) Est GFR (Non-Af Amer) BUN/Creatinine Ratio (10-20) Glucose (70-99) mg/dl POC Glucose 90 (70-99) Calcium (8.5-10.1) mg/dl Total Bilirubin (0.2-1) mg/dl AST (15-37) U/L ALT (12-78) U/L Alkaline Phosphatase (45-117) U/L Ammonia 12.7 (11-32) umol/L Total Protein (6.4-8.2) gm/dl Albumin (3.4-5.0) gm/dl Globulin (2.5-4.0) gm/dl Albumin/Globulin Ratio (0.9-2) Urine Color Urine Appearance (Clear) Urine pH (4.5-7.5) Ur Specific George (1.000-1.030) Urine Protein (Negative) Urine Glucose (UA) (Negative) Urine Ketones (Negative) Urine Blood (Negative) Urine Nitrite (Negative) Urine Bilirubin (Negative) Urine Urobilinogen (Negative) Ur Leukocyte Esterase (Negative) Urine RBC (0-4) /hpf Urine WBC (0-5) /hpf Ur Epithelial Cells (0-5) /lpf Urine Bacteria (Negative) Hyaline Casts (0-5) /lpf Urine Opiates Screen (Neg) Ur Methadone, Qual (Neg) Urine Barbiturates (Neg) Ur Phencyclidine (PCP) (Neg) U Amphetamin/Meth Scrn (Neg) MDMA (Ecstasy) Screen (Neg) U Benzodiazepines Scrn (Neg) Ur Cocaine Metabolite (Neg) U Marijuana (THC) Screen (Neg) Ethyl Alcohol mg/dL (0-3) mg/dl Administered Medications Buprenorphine/Naloxone (Suboxone 2 Mg/0.5 Mg) 1 tab PO DAILY [facility] Stop: 12/28/18 14:14 Last Admin: 11/28/18 14:22 Dose: 1 tab Documented by: [id number] Folic Acid (Folvite) [facility] Stop: 12/28/18 08:59 Last Admin: 11/28/18 08:43 Dose: 1 mg Documented by: [id number] Hydroxyzine HCl (Vistaril) 50 mg PO TID PRN PRN Reason: Anxiety Stop: 12/28/18 12:24 Last Admin: 11/28/18 13:29 Dose: 50 mg Documented by: [id number] Sodium Chloride (Nss 1000ml) 1,000 mls @ 80 mls/hr IV .[id number] [facility] Stop: 12/27/18 21:14 Last Admin: 11/28/18 10:13 Dose: 80 mls/hr Documented by: [id number] Infusion: 11/28/18 10:13 Dose: 80 mls/hr Documented by: [id number] Admin: 11/27/18 21:47 Dose: 80 mls/hr Documented by: [id number] Nicotine (Nicoderm Cq) 14 mg TD QAM [facility] Stop: 12/28/18 09:59 Last Admin: 11/28/18 10:44 Dose: 14 mg Documented by: [id number] Ondansetron HCl (Zofran) 4 mg IV Q6H PRN PRN Reason: Nausea Stop: 12/27/18 12:03 Last Admin: 11/28/18 13:33 Dose: 4 mg Documented by: [id number] Thiamine HCl (Vitamin B-1) 100 mg PO QAM [facility] Stop: 12/28/18 08:59 Last Admin: 11/28/18 08:43 Dose: 100 mg Documented by: [id number] Discontinued Medications Multivitamins 10 ml/ Thiamine HCl 100 mg/ Folic Acid 1 mg/Sodium Chloride 1,0 11.2 mls @ 1,011.2 mls/hr IV .Q1H [facility] Stop: 11/27/18 12:44 Last Infusion: 11/27/18 14:14 Dose: 0 mls/hr Documented by: [id number] Admin: 11/27/18 13:14 Dose: 1,011.2 mls/hr Documented by: [id number] Naloxone HCl (Narcan) 2 mg INTNAS ONE ONE Stop: 11/27/18 09:37 Last Admin: 11/27/18 09:58 Dose: Not Given Documented by: [id number] Discharge Plan Visit Data *Final* Discharge Date/Time: 11/27/18 12:47 Chief Complaint: Alcohol Intoxication ED Provider: Liu Nolan ED Midlevel Provider: Deirdre Alvarez Discharge Problem: Alcohol overdose, Altered mental status Patient Disposition: Admitted As Inpatient Discharge Instructions Interventions: ED Discharge Assessment Last Done: 11/27/18 12:47
--- NOTE | 2018-11-27 10:20 | CT Scan Report ---
HEAD CT NONCONTRAST CT DOSE: 614.27 mGy.cm HISTORY: Altered mental status. TECHNIQUE: Multiaxial CT images of the head were performed without the use of intravenous contrast. A utomated exposure control was utilized for this study. A dose lowering technique was utilized adheri ng to the principles of ALARA. Comparison: Head CT 11/26/2018. Findings: Small retention cyst within the floor the right maxillary sinus. The mastoid air cells are clear. The calvarium and skull base are intact. The ventricles and sulci are within normal limits. Th ere is no mass, hematoma, midline shift, or acute infarct. Impression: No acute intracranial abnormality. Electronically signed by: Taiwo Lopez M.D. 11/27/2018 10:18 AM
[2018-11-27 10:25] LABS: Alanine Aminotransferase 36 U/L (12-78); Albumin Level 3.5 gm/dl (3.4-5.0); Aspartate Aminotransferase 50 U/L (15-37); BUN Creatinine Ratio 21.1 (10-20); Blood Urea Nitrogen 15 mg/dl (7-18); Calcium 7.8 mg/dl (8.5-10.1); Carbon Dioxide 26 mmol/L (21-32); Chloride 110 mmol/L (98-107); Est GFR (African American) 140.9; Est GFR (Non-African American) 121.6; Glucose 172 mg/dl (70-99); Potassium 3.8 mmol/L (3.5-5.1); Sodium 146 mmol/L (136-145)
[2018-11-27 10:28] LABS: Albumin Globulin Ratio 1.1 (0.9-2); Alkaline Phosphatase 75 U/L (45-117); Bilirubin,Total 0.3 mg/dl (0.2-1); Globulin 3.1 gm/dl (2.5-4.0); Total Protein 6.6 gm/dl (6.4-8.2)
[2018-11-27] MEDS ORDERED: MULTI-VITAMIN INFUSION 10 ML, THIAMINE HCL 100 MG, FOLIC ACID 1 MG in SODIUM CHLORIDE 0... IV SCH (11:45)
[2018-11-27] MEDS ORDERED: MAGNESIUM HYDROXIDE SUSP 30 ML UDC PO PRN (12:04)
[2018-11-27] MEDS ORDERED: ACETAMINOPHEN 325 MG TAB PO PRN (12:04)
[2018-11-27] MEDS ORDERED: LORazepam 1 MG/2 ML VIAL IV PRN (12:04)
[2018-11-27] MEDS ORDERED: ALUMINUM/MAGNESIUM SUSP 30 ML UDC PO PRN (12:04)
[2018-11-27] MEDS ORDERED: POLYETHYLENE (MIRALAX) 17 GM PACK PO PRN (12:04)
[2018-11-27] MEDS ORDERED: ONDANSETRON INJ 2 MG/ML 2 ML VIAL IV PRN (12:04)
[2018-11-27 12:05] LABS: Appearance Urine Clear (Clear); Bilirubin Urine Negative (Negative); Blood Urine Trace (Negative); Color Urine Yellow; Glucose Urine UA Negative (Negative); Ketones Urine Trace (Negative); Leukocyte Esterase Urine Negative (Negative); Nitrite Urine Negative (Negative); Protein Urine Negative (Negative); Specific Gravity Urine 1.013 (1.000-1.030); Urobilinogen Urine Negative (Negative); pH Urine 5.5 (4.5-7.5)
[2018-11-27 12:10] LABS: Basophils # (auto) 0.02 K/uL (0-0.2); Basophils % (auto) 0.2 %; Eosinophils # (auto) 0.05 K/uL (0-0.5); Eosinophils % (auto) 0.6 %; Hematocrit (blood only) 39.3 % (42-52); Hemoglobin 14.1 g/dL (14.0-18.0); Immature Granulocytes # (auto) 0.03 K/uL (0.00-0.02); Immature Granulocytes % (auto) 0.3 %; Lymphocytes # (auto) 3.28 K/uL (1.2-3.4); Lymphocytes % (auto) 37.2 %; Mean Corpuscular Hemoglobin 32.9 pg (25-34); Mean Corpuscular Hgb Conc 35.9 g/dL (32-36); Mean Corpuscular Volume 91.6 fL (80-100); Mean Platelet Volume 8.4 fL (7.4-10.4); Monocytes # (auto) 0.24 K/uL (0.11-0.59); Monocytes % (auto) 2.7 %; Platelet Count 248 K/uL (130-400); RDW Coefficient of Variation 13.9 % (11.5-14.5); RDW Standard Deviation 45.9 fL (36.4-46.3); Red Blood Count 4.29 M/uL (4.7-6.1); White Blood Count 8.82 K/uL (4.8-10.8)
[2018-11-27 12:20] LABS: Amphetamines+Metham, Urine Neg (Neg); Barbiturates, Urine Neg (Neg); Benzodiazepine, Urine Neg (Neg); Cocaine, Urine Neg (Neg); MDMA (Ecstacy), Urine Neg (Neg); Methadone, Urine Neg (Neg); Opiate, Urine Neg (Neg); Phencyclidine, Urine Neg (Neg)
[2018-11-27 12:20] LABS: Partial Thromboplastin Ratio 0.9; Partial Thromboplastin Time 24.4 Seconds (21.0-31.0); Prothrombin Time 10.2 Seconds (9.0-12.0)
--- NOTE | 2018-11-27 12:21 | History & Physical Report ---
Date of Service November 27, 2018 Assessment & Plan (1) Altered mental status: - Multiple visits to the ED on 11/24 for suspected opiate withdrawal as he did not have his Suboxone and again on 11/26-11/27 for an unresponsive episode with ETOH of 367 and after an extended stay in the ED he was D/Yo around 0600 on 11/27 and represented as he was more intoxicated and couldn't pay his cab bill and EMS was called - His ETOH level has increased since D/C and it is uncertain if he consumed anything since leaving the ED early this AM - He will response to verbal stimuli occ. and to tactile stimuli; did get up to urinate and was standing but will quickly close his eyes - Repeat tox screen pending; Ammonia WNL; Glucose 90; Head CT negative; AST 50; electrolytes stable; EKG with NSR suspected incomplete RBBB and prolonged QT - It appears he was just D/Yo from [facility] on 11/23 and they report he is on Suboxone 2 mg daily - on a previous ED visit he self reported 8 mg BID - AWSS protocol with PRN Ativan; NPO until further alert; NPO status until mentation improves - Banana bag x 1 in ED and will continue daily unless more alert than can cover with Thiamine/Folic Acid po in AM - Aspiration precautions; will continue to recheck for airway competency which at this time is adequate Present on Admission?: Yes History of Present Illness Primary Care Provider: NO PCP Mr. Bush is a 33 y/o male with H/O Polysubstance Abuse who presents to the ED by EMS for an unresponsive episode. HPI obtained from ED notes/providers as patient largely unresponsive. He has been evaluated in the ED on 11/24-11/27 for concern of opiate withdrawal then later for ETOH intoxication and possibly further substances. It appears on 11/23 he was discharged from [facility] for ETOH/drug abuse rehab and self-reported at that time he was on Suboxone 8 mg BID however [facility] states only 2 mg daily. Patient stated he was not given a prescription for Suboxone and ultimately missed his appointment for this and presented on 11/24 with symptoms of opiate withdrawal. F/U was arranged to see if he can get seen sooner as the next available appointment was for this coming . He reports that he has been on Suboxone for approx. 2 months in one note however it also states that this was started at rehab but uncertain of the length of rehab he completed. Per notes he was getting Suboxone from [facility] in [place]. On 11/25 into program management professional on 11/26 he was brought back to the ED by EMS due to being found unresponsive in a neighbors yard. Question of possible syncope vs substance use as reports suggest he admits to ETOH and possible taking "some pills". Drug screen was negative but ETOH level was 416 on 11/26. He was observed throughout the day on 11/26 and was alert and oriented and talking upon D/C on 11/27. It appears he may have been D/Cd with his mother however he returned on 11/27 as he could not pay his taxi cab and reports of being intoxicated and having another unresponsive episode. It is uncertain the events since he left the hospital, whether ETOH was consumed or other substances were obtained. Repeat tox screen is pending. ETOH increased to 475 on repeat this AM from yesterdays level of 416. At this time, vitals are stable and he is maintaining his own airway. He will respond to verbal stimuli but quickly closes his eyes. At one point he did remove his own IV and stand to urinate but then went back to largely leaving his eyes closed. He was admitted in September for polysubstance use and concern for abusing Trazodone however per the note it did not appear that many pills were missing from the Trazodone. His drug screen on that admission was negative other than for ectasy which could have been a false positive. Allergies Allergy/AdvReac Type Severity Reaction Status Date / Time No Known Allergies Allergy Unverified 11/25/18 23:00 Home Medications Home Medications Medication Instructions Recorded Confirmed Type Unobtainable 11/27/18 11/27/18 History Past Med/Surg History Family History Other No significant family history Social History Preferred Language: Faroese Communication Ability: Impaired Communication Ability Comment: ETOH toxicology 475.4 Employment Advisor Required: No Beliefs That Will Affect Care: None Current Living Situation: Alone Other Information That Helps Us Care for You: No Feels Safe at Home: Yes Safety Concerns: Feels Safe At This Time Smoking Status: Former smoker Tobacco Type: smokeless tobacco ; Cigarettes Per Day: 20 ; Do You Dip or Chew Tobacco: Yes ; Second Hand Exposure: No ; Tobacco Cessation Education Requested by Patient: No Hx Alcohol Use: Yes Alcohol type: hard liquor Hx Substance Use: No Review of Systems Review of Systems: Unobtainable due to reduced consciousness Physical Exam Constitutional: + thin; no acute distress Eyes: + anicteric sclerae slightly dilated pupils equal b/l that are reactive but sluggish Neck: normal visual inspection and trachea midline Respiratory: normal respiratory effort, lungs clear to auscultation Cardiovascular: RRR, no murmur, no edema Gastrointestinal (Abdomen): Inspection/Auscultation: normal bowel sounds Percussion/Palpation: abdomen soft; abdomen nontender Musculoskeletal: Head/Neck/Chest: normocephalic some dried blood on R eyelid and L marie Skin: no rashes, warm and dry Neurologic: moves all extremities and + obtunded (but intermittently follows commands) Psychiatric: Orientation: oriented to place Results & Data Vital Signs (Past 12 Hours) Vital Signs Temp Pulse Pulse Resp BP BP Pulse Ox 11/27/18 12:04 77 14 99 11/27/18 10:45 76 14 113/74 99 11/27/18 10:18 57 L 16 110/69 100 11/27/18 09:55 69 16 121/69 100 11/27/18 09:42 99 11/27/18 08:56 36.3 C L 53 L 13 115/69 93 Supervising Physician Co-Signing Physician Notes I have seen and examined pt and agree with assessment and plan. PG Care Time/CCT Total # of Minutes Spent Total Time Spent with Patient: Total time spent is greater than 50% in coordination of care (as documented) at patient's floor/unit and/or counseling patient: (1) Altered mental status Altered mental status type: unspecified Qualified Code(s): R41.82 - Altered mental status, unspecified
[2018-11-27 12:28] LABS: Bacteria Urine Negative (Negative); Epithelial Cell Urine 0-5 /lpf (0-5); Hyaline Casts Urine 0-5 /lpf (0-5); RBC Urine 0-4 /hpf (0-4); WBC Urine 0-5 /hpf (0-5)
[2018-11-27] MEDS: SODIUM CHLORIDE 0.9% 1000ML 1,000 ML IV SCH (21:47)
[2018-11-28 07:27] LABS: Basophils # (auto) 0.02 K/uL (0-0.2); Basophils % (auto) 0.3 %; Eosinophils # (auto) 0.06 K/uL (0-0.5); Eosinophils % (auto) 0.9 %; Hematocrit (blood only) 35.9 % (42-52); Hemoglobin 12.5 g/dL (14.0-18.0); Immature Granulocytes # (auto) 0.01 K/uL (0.00-0.02); Immature Granulocytes % (auto) 0.2 %; Lymphocytes # (auto) 1.93 K/uL (1.2-3.4); Lymphocytes % (auto) 29.3 %; Mean Corpuscular Hemoglobin 31.6 pg (25-34); Mean Corpuscular Hgb Conc 34.8 g/dL (32-36); Mean Corpuscular Volume 90.9 fL (80-100); Mean Platelet Volume 8.8 fL (7.4-10.4); Monocytes # (auto) 0.47 K/uL (0.11-0.59); Monocytes % (auto) 7.1 %; Neutrophils % (auto) 62.2 %; Platelet Count 214 K/uL (130-400); RDW Coefficient of Variation 13.4 % (11.5-14.5); RDW Standard Deviation 44.5 fL (36.4-46.3); Red Blood Count 3.95 M/uL (4.7-6.1); White Blood Count 6.59 K/uL (4.8-10.8)
[2018-11-28 08:06] LABS: Alanine Aminotransferase 42 U/L (12-78); Albumin Level 3.2 gm/dl (3.4-5.0); Aspartate Aminotransferase 58 U/L (15-37); Blood Urea Nitrogen 13 mg/dl (7-18); Calcium 8.4 mg/dl (8.5-10.1); Carbon Dioxide 29 mmol/L (21-32); Chloride 104 mmol/L (98-107); Creatinine Clr Calc Pharmacy 151.5 ml/min; Est GFR (African American) > 150.0; Glucose 75 mg/dl (70-99); Potassium 3.8 mmol/L (3.5-5.1); Sodium 141 mmol/L (136-145)
[2018-11-28 08:22] LABS: Albumin Globulin Ratio 1.2 (0.9-2); Alkaline Phosphatase 71 U/L (45-117); Bilirubin,Total 0.9 mg/dl (0.2-1); Globulin 2.7 gm/dl (2.5-4.0); Total Protein 5.9 gm/dl (6.4-8.2)
[2018-11-28] MEDS: FOLIC ACID 1 MG TAB PO SCH (08:43)
[2018-11-28] MEDS: THIAMINE HCL 100 MG TAB PO SCH (08:43)
[2018-11-28] MEDS: SODIUM CHLORIDE 0.9% 1000ML 1,000 ML IV SCH ×2 (10:13→21:25)
[2018-11-28] MEDS: NICOTINE 14 MG/24 HR PATCH TD SCH (10:44)
[2018-11-28] MEDS: BUPRENORPHINE/NALOXONE 2/0.5MG 1 TAB PO SCH (14:22)
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
[2018-11-28] MEDS ORDERED: LORazepam 1 MG TAB PO PRN (16:37)
--- NOTE | 2018-11-28 18:02 | Discharge Summary ---
Date of Service November 29, 2018 Admission HPI Per Admitting Provider Mr. Bush is a 33 y/o male with H/O Polysubstance Abuse who presents to the ED by EMS for an unresponsive episode. HPI obtained from ED notes/providers as patient largely unresponsive. He has been evaluated in the ED on 11/24-11/27 for concern of opiate withdrawal then later for ETOH intoxication and possibly further substances. It appears on 11/23 he was discharged from [facility] for ETOH/drug abuse rehab and self-reported at that time he was on Suboxone 8 mg BID however [facility] states only 2 mg daily. Patient stated he was not given a prescription for Suboxone and ultimately missed his appointment for this and presented on 11/24 with symptoms of opiate withdrawal. F/U was arranged to see if he can get seen sooner as the next available appointment was for this coming . He reports that he has been on Suboxone for approx. 2 months in one note however it also states that this was started at rehab but uncertain of the length of rehab he completed. Per notes he was getting Suboxone from [facility] in [place]. 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 Question of possible syncope vs substance use as reports suggest he admits to ETOH and possible taking "some pills". Drug screen was negative but ETOH level was 416 on 11/26. He was observed throughout the day on 11/26 and was alert and oriented and talking upon D/C on 11/27. It appears he may have been D/Cd with his mother however he returned on 11/27 as he could not pay his taxi cab and reports of being intoxicated and having another unresponsive episode. It is uncertain the events since he left the hospital, whether ETOH was consumed or other substances were obtained. Repeat tox screen is pending. ETOH increased to 475 on repeat this AM from yesterdays level of 416. At this time, vitals are stable and he is maintaining his own airway. He will respond to verbal stimuli but quickly closes his eyes. At one point he did remove his own IV and stand to urinate but then went back to largely leaving his eyes closed. He was admitted in September for polysubstance use and concern for abusing Trazodone however per the note it did not appear that many pills were missing from the Trazodone. His drug screen on that admission was negative other than for ecstasy which could have been a false positive. Principal Diagnosis Alcohol Intoxication; Polysubstance Abuse Discharge Exam Constitutional + thin; no acute distress and not ill appearing Eyes + anicteric sclerae ENMT Ears: no hearing impairment Neck normal visual inspection and trachea midline Respiratory normal respiratory effort, lungs clear to auscultation Cardiovascular RRR, no murmur, no edema Gastrointestinal (Abdomen) Inspection/Auscultation: normal bowel sounds Percussion/Palpation: abdomen soft; abdomen nontender Musculoskeletal no cyanosis or clubbing, extremities motor strength 5/5 Head/Neck/Chest: normocephalic Skin abrasions noted to R side of head, scabbed over without active bleeding, erythema, purulent drainage Neurologic moves all extremities Psychiatric A+Ox3, euthymic affect Eye Contact: good eye contact Motor Behavior: no abnormal motor movements; n tremor Affect: + flat affect Suicidal Thoughts: denies suicidal thoughts, denies suicidal plan and denies suicidal intent Homicidal Thoughts: denies homicidal thoughts Discharge Data Allergies Allergy/AdvReac Type Severity Reaction Status Date / Time No Known Allergies Allergy Unverified 11/25/18 23:00 Consultations 11/27/18 11:37 ED Decision to Admit Stat 11/27/18 12:07 Consult Case Management - Discharge Planning Routine 11/27/18 20:08 Consult Psychiatry Routine 11/27/18 21:10 Consult Psychiatry Routine Ordered Studies 11/27/18 09:29 CT head/brain wo con Stat Hospital Course (1) Altered mental status: - This is in the setting of alcohol intoxication and possible polysubstance abuse - Patient is alert and oriented at time of discharge. Calm and cooperative with care and discussions today. Complete details of the past few days are limited. He does not recall all events and does not remember leaving the ED the morning of 11/27 or returning later that day. - He does confirm admission to [facility] and states he was tapered down on Suboxone while there however reports he was utilizing Suboxone without a prescription prior to rehab. He also states he missed his initial Suboxone clinic appointment and presented to our ED. He then proceeded to a clinic in [place] and got a prescription for Suboxone to get him through until his follow-up appointment. He states he was supposed to get Suboxone 8 mg BID but when he filled the prescription it was only for 4 mg BID. However, according to PDMP an Rx was filled on 11/25 for Suboxone 4 mg daily x 7 days. He reports this medication is at home. He was advised that Suboxone would not be prescribed on discharge from this facility. On review of his outside pharmacy and recent Rx was filled for Trazodone and Vistaril and he was advised a new Rx would not be provided from the hospital either. - He was evaluated by the hospital team and psychiatry on multiple visits. He is sober and understands the discussions with him. He has been offered inpatient help with detox or referrals to drug/rehab facilities however he has declined on multiple occasions. At this current time he is calm and coherent. He self- reports some anxiety but no significant signs of active withdrawal from alcohol or opiates. Drug screen on admission was negative and ETOH level trended down. - When asked about reports of suicidal intentions or messages he denies this and states that if he said this he did not mean it. He states he would not go through with plans to harm himself or commit suicide. He continues to deny suicidal thoughts/intents/plan. - At this time patient would like to return home. Medically there is no contraindication as he is hemodynamically stable. Telemetry reveals a NSR and some sinus bradycardia/sinus arrhythmia which is benign. He does report anxiety but no other active signs of decompensation from withdrawal. - A 302 petition was filed by family members however at this current time Mr. Bush does not exhibit suicidal thoughts or plans. His mentation is appropriate and he expresses understanding of the risks of his recent and ongoing actions. However, suspect without formalized assistance and help that drinking and substance abuse will likely continue. The [place] mental health law does not allow for commitment for substance use disorders and at this time there is not a psychiatric condition that would warrant involuntary commitment. Again, patient was offered further admission for monitoring and assistance with alcohol/drug cessation but this was declined. - He was advised to avoid all alcohol and substances. Advised not to drive especially under the influence. His family has been in contact with his traffic officer. - At this time his is stable for discharge. Encouraged to seek additional help with alcohol/drug cessation. He is high risk for readmission given he has had multiple rehab stays and continues to consume alcohol/substances. He is to follow up with his Suboxone clinic for ongoing treatment and management. - Due to not having transportation on 11/28 he remained hospitalized overnight and D/Cd on 11/29. He continues to denies SI and remains alert/oriented and coherent. His transportation did arrive today however his traffic officer was present as matt jennifer. He was discharged in stable condition with his traffic officer. Total Time Total Time Spent Total Time Spent (In Minutes): Greater than 30 minutes Discharge Plan Discharge Items Patient Disposition: Home - Self-Care Reason For Visit: ALTERED MENTAL STATUS; POLYSUBSTANCE ABUSE Discharge Diagnosis: Alcohol Intoxication Discharge Goals: Improve disease control, Improve function and Prevent disease Activity: Resume your previous activity Driving/Machine Use Comment: No driving if consuming alcohol or any medications that can make you drowsy Non-emergency contact: Primary Care Provider Call non-emergency contact if: you have any medication questions, your symptoms worsen and you have a fever Follow-up/Referrals: PCP,NO [Primary Care Provider] - Diet: Regular Addtl Provider Instructions: Unresponsive Episode and Alcohol Intoxication: - You have had multiple visits to the ER between [place] and [place]. Your alcohol levels have been at dangerous and life-threatening levels. It is important to get into a program or find support to help stop drinking. It is also important to not mix alcohol with your Trazodone or Vistaril as this can make things more dangerous. - Never drive a vehicle when using any substance. - If you do want to stop drinking alcohol it is recommended that you go to a facility or come to the ER where you can be monitored and helped through any withdrawal symptoms. You can always come back to the ER if you do decide you want help to stop drinking or stopping other substances. - As well, if you ever feel like hurting yourself or thoughts of suicide please call for help and talk to someone before taking any action. You can call 911 or any Crisis/Suicide Hotlines and they can get you the help you need. - Will also give a prescription for Folic Acid and Vitamin B1 as these are i mportant to have in the diet. A prescription was sent to your pharmacy Suboxone: - You were given a prescription from the clinic and will need to continue to follow up with them for ongoing prescriptions. We cannot give you Suboxone from the hospital. You Trazodone and Vistaril were also recently filled in October and we cannot give a new prescription for these. You can follow-up with the doctor matt lucas prescribes these for you if you need to continue these. Again, recommend that you sustain from all forms of alcohol and using substances. Please continue to seek help for this. Prescriptions: New thiamine HCl (vitamin B1) [Vitamin B-1] 100 mg Tablet 100 mg PO QAM 30 Days Qty: 30 RF: 0 folic acid 1 mg Tablet 1 mg PO QAM 30 Days Qty: 30 RF: 0 Continued hydroxyzine pamoate 50 mg capsule 50 mg PO TID PRN (Reason: Anxiety) RF: 0 trazodone 150 mg tablet 150 mg PO HS RF: 0 Stand-Alone Forms: [facility] Discharge Orders: Discharge Order (Routine); Ordered 11/29/18 Ordered By: Leslie Beckett Admission Data Admit Date/Time: 11/27/18 12:00 Attending Provider: Don Pedraza Admit Provider: Jagjit Jefferson Primary Care Provider: PCP,NO Other Providers: Alma Cherry ; Jagjit Jefferson Service: Telemetry Other Interventions: Discharge Summary Assessment (RN) Last Done: 11/29/18 10:10 Pending Studies at Discharge: No DC Date/Time DO NOT enter until pt leaves facility: 11/29/18 10:22 Supervising Physician Co-Signing Physician Notes Attending note: patient seen and examined with Leslie Beckett PA-C. I agree with her discharge summary. I personally reviewed the labs and imaging findings. Patient returned to hospital due to decreased responsiveness after recent admission. Found to be intoxicated. Exhibiting reckless behavior with drinking, driving without license, taking someone's car. He has been seeking Suboxone, unsure of dose that he is taking. Examined by psychiatry, not a candidate for involuntary commitment, 302 warrant was ended. Patient's family notified probation officers of his behavior, they arrived and took him under custody upon discharge.
[2018-11-28] MEDS ORDERED: TRAZODONE HCL 50 MG TAB PO SCH (21:00)
[2018-11-29 05:46] LABS: Hematocrit (blood only) 33.5 % (42-52); Hemoglobin 11.7 g/dL (14.0-18.0); Mean Corpuscular Hemoglobin 31.9 pg (25-34); Mean Corpuscular Hgb Conc 34.9 g/dL (32-36); Mean Corpuscular Volume 91.3 fL (80-100); Mean Platelet Volume 8.6 fL (7.4-10.4); Platelet Count 172 K/uL (130-400); RDW Coefficient of Variation 13.3 % (11.5-14.5); RDW Standard Deviation 44.5 fL (36.4-46.3); Red Blood Count 3.67 M/uL (4.7-6.1); White Blood Count 4.75 K/uL (4.8-10.8)
[2018-11-29 06:15] LABS: Albumin Level 2.9 gm/dl (3.4-5.0); BUN Creatinine Ratio 19.6 (10-20); Calcium 8.1 mg/dl (8.5-10.1); Est GFR (Non-African American) 127.7; Potassium 3.3 mmol/L (3.5-5.1)
[2018-11-29 06:18] LABS: Albumin Globulin Ratio 1.2 (0.9-2); Bilirubin,Total 0.8 mg/dl (0.2-1); Globulin 2.5 gm/dl (2.5-4.0); Total Protein 5.4 gm/dl (6.4-8.2)
[2018-11-29 06:29] LABS: Basophils # (auto) 0.02 K/uL (0-0.2); Basophils % (auto) 0.4 %; Eosinophils # (auto) 0.18 K/uL (0-0.5); Eosinophils % (auto) 3.8 %; Immature Granulocytes # (auto) 0.01 K/uL (0.00-0.02); Immature Granulocytes % (auto) 0.2 %; Lymphocytes % (auto) 54.7 %; Monocytes # (auto) 0.29 K/uL (0.11-0.59); Monocytes % (auto) 6.1 %; Neutrophils # (auto) 1.65 K/uL (1.4-6.5); Neutrophils % (auto) 34.8 %
[2018-11-29] MEDS ORDERED: POTASSIUM CHLORIDE 20 MEQ TABCR PO STA (07:40)
[2018-11-29] MEDS: FOLIC ACID 1 MG TAB PO SCH (08:06)
[2018-11-29] MEDS: THIAMINE HCL 100 MG TAB PO SCH (08:07)
[2018-11-29] MEDS: NICOTINE 14 MG/24 HR PATCH TD SCH (08:07)
[2018-11-29] MEDS: BUPRENORPHINE/NALOXONE 2/0.5MG 1 TAB PO SCH (08:35)
--- NOTE | 2018-11-29 11:32 | History & Physical Bridge Note ---
Date of Service November 28, 2018 History & Physical Bridge Note Patient was seen and evaluated on 11/28 with no active signs of withdrawal. He was prepared for D/C on 11/28 however was unable to obtain a ride until 11/29. He was seen and evaluated by both hospitalist service and psychiatry on multiple occassions. REVIEW OF SYSTEMS General/Constitutional: Denies fever/chills, fatigue, weakness Cardiovascular: Denies chest pain, palpitations, edema, dizziness Respiratory: Denies cough, SOB GI: + nausea; Denies vomiting, abdominal pain, constipation, diarrhea : Denies dysuria Neurologic: Denies dizziness/lightheadedness, numbness/tingling, weakness Psychiatric: +anxiety; Denies SI/HI Hematologic/Lymphatic: Denies bleeding/clotting abnormalities Skin: + facial abrasions; Denies rash PHYSICAL EXAM General Appearance: WDWN in NAD who is A&O x 3; calm and cooperative HEENT: Head is normocephalic with superficial abrasions of R forehead/face; Hearing grossly intact; Mucous membranes moist Neck: Supple; Trachea midline Heart: RRR with no M/G/R Lungs: CTA in all lung brown bilaterally; Respirations unlabored; Neg accessory muscle use Abdomen: Soft, non-tender, non-distended; Positive BS x 4 quadrants Extremities: Neg cyanosis or edema Neurological: Speech clear; Gross motor/sensory function intact; Neg focal neurologic deficits Psychiatric: Appropriate mood; flat affect Skin: Normal Color; Warm/Dry; Neg rashes Plan: - Unresponsive/ETOH intoxication: RESOLVED -- At this time patient is back to baseline mentation and sober. Reports anxiety but no overt signs of withdrawal -- He will continue is Suboxone as prescribed by the clinic; He can continue his Vistaril/Trazodone as prescribed but advised to not mix these with alcohol -- He would like to return home and was ready for D/C but did not have a ride Sinus Arrhythmia/Bradycardia: - He is noted to has intermittent sinus bradycardia and sinus arrhythmia and is asymptomatic. He denies having dizziness or feeling like passing out unless he is drinking. He states he can be unsteady on his feet when he is drinking but does not feel like this is present when he isn't drinking. This is like his normal variant but did advise that when sober if he gets dizzy to have this further evaluated. He was noted on a previous admission to have similar findings of atrial/ventricular ectopy with a degree of bradycardia with escape rhythm
--- NOTE | 2018-11-29 12:10 | Hospitalist Progress Note ---
Date of Service November 29, 2018 Subjective Patient was seen and evaluated on 11/28 with no active signs of withdrawal. He was prepared for D/C on 11/28 however was unable to obtain a ride until 11/29. He was seen and evaluated by both hospitalist service and psychiatry on multiple occassions. REVIEW OF SYSTEMS General/Constitutional: Denies fever/chills, fatigue, weakness Cardiovascular: Denies chest pain, palpitations, edema, dizziness Respiratory: Denies cough, SOB GI: + nausea; Denies vomiting, abdominal pain, constipation, diarrhea : Denies dysuria Neurologic: Denies dizziness/lightheadedness, numbness/tingling, weakness Psychiatric: +anxiety; Denies SI/HI Hematologic/Lymphatic: Denies bleeding/clotting abnormalities Skin: + facial abrasions; Denies rash PHYSICAL EXAM General Appearance: WDWN in NAD who is A&O x 3; calm and cooperative HEENT: Head is normocephalic with superficial abrasions of R forehead/face; Hearing grossly intact; Mucous membranes moist Neck: Supple; Trachea midline Heart: RRR with no M/G/R Lungs: CTA in all lung brown bilaterally; Respirations unlabored; Neg accessory muscle use Abdomen: Soft, non-tender, non-distended; Positive BS x 4 quadrants Extremities: Neg cyanosis or edema Neurological: Speech clear; Gross motor/sensory function intact; Neg focal neurologic deficits Psychiatric: Appropriate mood; flat affect Skin: Normal Color; Warm/Dry; Neg rashes Plan: - Unresponsive/ETOH intoxication: RESOLVED -- At this time patient is back to baseline mentation and sober. Reports anxiety but no overt signs of withdrawal -- He will continue is Suboxone as prescribed by the clinic; He can continue his Vistaril/Trazodone as prescribed but advised to not mix these with alcohol -- He would like to return home and was ready for D/C but did not have a ride Sinus Arrhythmia/Bradycardia: - He is noted to has intermittent sinus bradycardia and sinus arrhythmia and is asymptomatic. He denies having dizziness or feeling like passing out unless he is drinking. He states he can be unsteady on his feet when he is drinking but does not feel like this is present when he isn't drinking. This is like his normal variant but did advise that when sober if he gets dizzy to have this further evaluated. He was noted on a previous admission to have similar findings of atrial/ventricular ectopy with a degree of bradycardia with escape rhythm Results & Data Vital Signs (Past 12 Hours) Vital Signs Temp Pulse Resp BP BP Pulse Ox 11/29/18 10:10 37.2 C 48 L 18 113/61 111/66 96 11/29/18 06:47 37.2 C 48 L 18 111/66 96 11/29/18 03:19 37.0 C 50 L 17 134/79 97 PG Care Time/CCT Total # of Minutes Spent Total Time Spent with Patient: Total time spent is greater than 50% in patient placement coordinator rdination of care (as documented) at patient's floor/unit and/or counseling patient:
== END 2018-11-29 10:22 | disposition home or self-care (01) ==
LOC: ED 08:56 → 2E 12:47 → INTOOBSV 13:08 → SUATTDRO 13:08